=== PATIENT | male | born 1935 | race Two or more races ===

== ENCOUNTER 2016-05-17 16:48 | Inpatient (IN) | payer MEDICAID ==
--- NOTE | 2016-05-17 19:09 | SOAPPROG ---
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 EXAM REVEALS AN OPEN ULCERATION INTO THE INTERPHALANGEAL JOINTS OF THE 2ND TOE WITH SOME PURULENT DRAINAGE. HE ALSO HAS ULCERATIONS ON THE 3RD AND 4TH TOE WELL SWELLING OF HIS AND FOREFOOT. DOPPLER FLOW IS QUITE MINIMAL Plan: PLAN IS ADMIT FOR INTERNAL MEDICINE CONSULTATION / ARTERIAL STUDIES / POSSIBLE CTA / POSSIBLE TOE AMPUTATIONS OR HIGHER LEVEL AMPUTATION / WE WILL EVALUATE FOR POTENTIAL WAYS TO IMPROVE HIS CIRCULATION 05/17/16 19:05 Objective: Vital Signs Temp Pulse Resp BP Pulse Ox 36.9 C 67 16 175/82 H 92 05/17/16 17:52 05/17/16 17:52 05/17/16 17:52 05/17/16 18:06 05/17/16 17:52 ICD10 Worksheet Patient Problems: Problems Problem Status Onset Peripheral vascular disease Acute Acute kidney injury Acute Fever Acute Dehydration Acute VRE (vancomycin-resistant Enterococci) Acute 06/23/15 MRSA (methicillin resistant Staphylococcus aureus) Acute 07/21/15 Cellulitis Acute
[2016-05-17] MEDS ORDERED: ONDANSETRON 4 MG/2 ML VIAL IVP PRN (19:33)
[2016-05-17] MEDS ORDERED: ONDANSETRON DISINTEGRATING 4 MG TAB PO PRN (19:33)
[2016-05-17] MEDS ORDERED: ACETAMINOPHEN 325 MG TAB PO PRN (19:33)
[2016-05-17] MEDS ORDERED: hydrALAZINE 25 MG TAB PO ONE (19:36)
--- NOTE | 2016-05-17 20:55 | GHP ---
[f rep st] HISTORY AND PHYSICAL DATE OF ADMISSION: 05/17/2016 CHIEF COMPLAINT: Foot infection. HISTORY OF PRESENT ILLNESS: This is a 80-year-old male with a history of a left BKA, who saw Dr. Chacha dowell today for a right toe infection. Dr. Fang wanted him directly admitted for IV antibiotics. He notes that he has had a wound on his right toe for some time. He does not believe that he has had any fevers at home. It is somewhat tender to palpation. He is able to bear weight on this leg, but he is mostly wheelchair bound. He does have sensation to light touch in his right lower extremity. He was admitted here about 8 months ago for a left BKA, as well as a left stump infection. He ledbetter s not have any significant known diabetes. He has a history of MRSA, as well as Proteus enterococcu s and coag-negative staph in various cultures. PAST MEDICAL/SURGICAL HISTORY: 1. CVA. 2. Left BKA. 3. Suspected peripheral vascular disease. 4. Chronic kidney disease. 5. Anemia. 6. COPD. 7. BPH. 8. Anemia. 9. Dementia. MEDICATIONS: Please see medication reconciliation. ALLERGIES: No known drug allergies. FAMILY HISTORY: He denies any significant history. SOCIAL HISTORY: He quit tobacco and alcohol when he had a stroke. He lives with his son. He is mo stly wheelchair bound. REVIEW OF SYSTEMS: A 10-point review of systems is conducted and is negative except per HPI. PHYSICAL EXAM: VITAL SIGNS: Blood pressure 175/82, heart rate 87, respiration rate 16, sat 92% on 2 L, temperature 36.9. GENERAL: The patient is a pleasant elderly man who appears in no acute dist ress. EXTREMITIES: A left intact BKA stump, which is well healed. He has a right toe, which has a n open ulcer. There is purulence around it. There is some small amount of surrounding erythema, as well as warmth. I am unable to populate a dorsalis pedis pulse. HEENT: Normocephalic, atraumatic . CARDIOVASCULAR: Regular rate and rhythm. No murmurs, rubs, or gallops. PULMONARY: Mild wheeze s bilaterally. ABDOMEN: Tender to palpation. There is no rebound or guarding. SKIN: No rash. G U: No Ying. NEUROLOGIC: Alert and oriented x3. EXTREMITIES: He is moving all extremities. PSY CHIATRIC: Normal mood and affect. DATA: I discussed this with Dr. Fang. We will admit to med/surg. IMPRESSION AND PLAN: This is a 80-year-old man with likely vascular disease who has a right foot ul cer. 1. Right foot ulcer: Suspect that this is due to vascular disease. Last A1c was 6.3%, I will chec k another, though he has sensation. We will check an x-ray to evaluate for osteo. We will send a w ound culture. I will empirically start antibiotics, as there is some surrounding cellulitis. We wi ll ask Infectious Disease to be involved. We will get arterial studies. Dr. Fang will also be inv olved. He may need a toe amputation versus right-sided BKA. 2. Cerebrovascular accident: We will continue his medications once they are reconciled. 3. History of chronic kidney disease: Check labs right now. Avoid nephrotoxins. 4. Uncontrolled hypertension: I will continue his antihypertensives, including hydralazine and aml odipine. 5. Venous thromboembolism risk: He is high risk. I will give him subcu heparin. 6. Code status: Per him and his son, he would like to be full code. /[id number]/MODL
[2016-05-17] MEDS: HEPARIN 5,000 UNIT/0.5 ML SYR SC SCH (21:18)
[2016-05-17 21:45] LABS: % IMMATURE GRANULYOCYTES 0.4 % (0.0-1.1); ABSOLUTE IMMATURE GRANULOCYTES 0.04 10^3/uL (0.00-0.10); ADD DIFF? NO; ADD MORPH? NO; ADD SCAN? NO; ATYPICAL LYMPHOCYTE FLAG 10 (0-99); FRAGMENT RBC FLAG 20 (0-99); HEMOGLOBIN 8.8 g/dL (13.7-17.5); LEFT SHIFT FLG 0 (0-99); LIPEMIA HEMOLYSIS FLAG 70 (0-99); MEAN CELL HEMOGLOBIN 23.5 pg (27.9-34.1); MEAN CELL HEMOGLOBIN CONCENTR. 29.3 g/dL (32.4-36.7); MEAN PLATELET VOLUME 9.5 fL (8.7-11.7); PLATELET CLUMPS FLAG 0 (0-99); PLATELET COUNT 282 10^3/uL (150-400); RED BLOOD CELL COUNT 3.75 10^6/uL (4.40-6.38); RED CELL DISTRIBUTION WIDTH 18.5 % (11.5-15.2)
[2016-05-17] MEDS: PIPERACILLIN/TAZO 2.25 GM/DEX 50 ML IV SCH (21:51)
[2016-05-17 21:56] LABS: INR 1.09 (0.83-1.16)
[2016-05-17] MEDS ORDERED: oxyCODONE IR 5 MG TAB PO PRN ×2 (21:56)
[2016-05-17 21:58] LABS: ALANINE AMINOTRANSFERASE 26 IU/L (21-72); ALBUMIN 3.9 g/dL (3.5-5.0); ALKALINE PHOSPHATASE 74 IU/L (38-126); ANION GAP 13 mEq/L (8-16); ASPARTATE AMINOTRANSFERASE 13 IU/L (17-59); BILIRUBIN,TOTAL 0.4 mg/dL (0.1-1.4); CARBON DIOXIDE 27 mEq/l (22-31); CHLORIDE 99 mEq/L (97-110); CREATININE 2.1 mg/dL (0.7-1.3); GLOMERULAR FILTRATION RATE 31; GLUCOSE 122 mg/dL (70-100); MAGNESIUM 1.8 mg/dL (1.6-2.3); POTASSIUM 4.7 mEq/L (3.5-5.2); SODIUM 139 mEq/L (134-144); TOTAL PROTEIN 7.3 g/dL (6.3-8.2)
[2016-05-17] MEDS: oxyCODONE IR 5 MG TAB PO PRN (22:02)
[2016-05-17] MEDS: NYSTATIN POWDER 15 GM BTL TP SCH (22:45)
[2016-05-17] MEDS: VANCOMYCIN HCL/NORMAL SALINE 250 ML IV SCH (23:29)
[2016-05-18] MEDS: SODIUM CL NASAL GEL 14.1 GM TUBE TP SCH ×3 (00:50→23:20)
[2016-05-18 05:11] LABS: % IMMATURE GRANULYOCYTES 0.4 % (0.0-1.1); ABSOLUTE IMMATURE GRANULOCYTES 0.03 10^3/uL (0.00-0.10); ADD DIFF? NO; ADD MORPH? YES; ADD SCAN? NO; ATYPICAL LYMPHOCYTE FLAG 10 (0-99); FRAGMENT RBC FLAG 20 (0-99); HEMATOCRIT 26.6 % (40.0-51.0); HEMOGLOBIN 7.7 g/dL (13.7-17.5); LEFT SHIFT FLG 0 (0-99); LIPEMIA HEMOLYSIS FLAG 70 (0-99); MEAN CELL HEMOGLOBIN 23.2 pg (27.9-34.1); MEAN CELL VOLUME 80.1 fL (81.5-99.8); PLATELET CLUMPS FLAG 0 (0-99); PLATELET COUNT 262 10^3/uL (150-400); RED BLOOD CELL COUNT 3.32 10^6/uL (4.40-6.38); RED CELL DISTRIBUTION WIDTH 18.4 % (11.5-15.2)
[2016-05-18 05:16] LABS: MEAN CELL HEMOGLOBIN CONCENTR. 28.9 g/dL (32.4-36.7)
[2016-05-18 05:31] LABS: ANION GAP 11 mEq/L (8-16); CALCIUM 8.5 mg/dL (8.5-10.4); CARBON DIOXIDE 25 mEq/l (22-31); CHLORIDE 102 mEq/L (97-110); CREATININE 2.2 mg/dL (0.7-1.3); GLOMERULAR FILTRATION RATE 29; GLUCOSE 112 mg/dL (70-100); POTASSIUM 5.1 mEq/L (3.5-5.2); SODIUM 138 mEq/L (134-144)
[2016-05-18] MEDS: PIPERACILLIN/TAZO 2.25 GM/DEX 50 ML IV SCH ×3 (05:58→23:20)
[2016-05-18] MEDS: HEPARIN 5,000 UNIT/0.5 ML SYR SC SCH ×3 (05:58→23:20)
[2016-05-18 05:59] LABS: MICROCYTES 1+
[2016-05-18 06:00] LABS: ELLIPTOCYTES 1+; GIANT PLATELETS PRESENT; HYPOCHROMIA 1+; KERATOCYTES 1+; LARGE PLATELETS PRESENT; PLATELET ESTIMATE ADEQUATE (ADEQ); POLYCHROMASIA 1+; SCHISTOCYTES 1+
[2016-05-18] MEDS: oxyCODONE IR 5 MG TAB PO PRN ×4 (06:02→17:44)
[2016-05-18] MEDS: TAMSULOSIN HCL 0.4 MG CAP PO SCH ×2 (08:09→20:36)
[2016-05-18] MEDS: morphINE SR 15 MG TAB PO SCH ×3 (08:09→20:36)
[2016-05-18] MEDS: FUROSEMIDE 20 MG TAB PO SCH (08:09)
[2016-05-18] MEDS: LACTASE 3,000 UNIT TAB PO SCH ×3 (08:09→18:11)
[2016-05-18] MEDS: POLYETHYLENE GLYCOL 3350 17 GM PKT PO SCH (08:10)
[2016-05-18] MEDS ORDERED: PNEUMOC 13-VAL CONJ-DIP CRM/PF 0.5 ML SYR IM ONE ×2 (08:35→11:30)
[2016-05-18] MEDS: NYSTATIN POWDER 15 GM BTL TP SCH ×3 (11:40→23:20)
--- NOTE | 2016-05-18 15:51 | HOSPPROG ---
Hospitalist Progress Note Assessment/Plan: 80 yo M w/hx of L BKA 2/2 PVD and presenting now with R toe/foot ulceration # right foot ulcer/cellulitis: purulent drainage and in the setting of PVD. Will need arterial studies and possible amputation. Treating for now with vanc/ zosyn. Surgery following, ID consulted. Blood and wound cultures pending. # dementia: with hx of prior stroke and seems to be at baseline # ckd: baseline creatinine of 2.3 approximately, at baseline currently, presumed 2/2 htn/vascular disease. Will monitor while on vancomycin. # chronic anemia: now at baseline, drop overnight likely dilutional, presumed due to anemia of chronic disease # htn: bp currently well controlled on carvedilol and lasix # chronic pain with continuous narcotic use and dependency: continue op medications, pain seems currently reasonably controlled # hyperglycemia: no prior hx of dm, checking A1c # dispo: IP status, will need > 48 hours stay for evaluation/mgmt of above Patient new to my care. Old records reviewed and summarized as above. Subjective: no significant overnight events, patient states he is having pain everywhere, but nothing new--limited by patients cognitive dysfunction Objective: Vital Signs Temp Pulse Resp BP Pulse Ox 36.5 C 78 20 128/90 H 90 L 05/18/16 15:10 05/18/16 15:10 05/18/16 15:10 05/18/16 15:10 05/18/16 15:10 Microbiology 05/18/16 08:23 Gram Stain - Final Foot - Anaerobic Tube/Swab Laboratory Results 05/18/16 04:20 05/18/16 04:20 05/17/16 05/18/16 05/19/16 05:59 05:59 05:59 Intake Total 450 Output Total 300 70 Balance 150 -70 PT 14.0 SEC (12.0-15.0) 05/17/16 21:37 INR 1.09 (0.83-1.16) 05/17/16 21:37 somnolent but arousable anicteric op clear rrr no mrg cta b dec bs throughout soft nt nd no cce, left bka, right foot bandaged warm dry diminished distal pulse right foot oriented x 2, interactive, cognitive dysfunctoin ICD10 Worksheet Patient Problems: Problems Problem Status Onset Peripheral vascular disease Acute Acute kidney injury Acute Fever Acute Dehydration Acute VRE (vancomycin-resistant Enterococci) Acute 06/23/15 MRSA (methicillin resistant Staphylococcus aureus) Acute 07/21/15 Cellulitis Acute
--- NOTE | 2016-05-18 17:12 | PCMIDPN ---
Assessment/Plan: Assessment: Right foot infected ulcer on the dorsum of the 2nd toe. Patient also has a small ulcer on the medial aspect of his 3rd toe. Patient is covered on both vancomycin and Zosyn empirically. The inflammation appears to be improved over the dorsum of the foot. He will undergo vascular studies to try to determine if he has peripheral arterial disease on the right side which can be fixed. In the meantime plan to continue the antibiotics and monitor levels. Plan: 05/18/16 17:22 05/18/16 17:41 Subjective: Patient is resting comfortably in his hospital bed. He has his right foot propped up on pillows. He is status post left-sided BKA. Denies any fevers or chills. Some pain in the right foot. Objective: Vancomycin 1 g IV Q 24 hours # 1 Zosyn # 1 Vital Signs Temp Pulse Resp BP Pulse Ox 36.5 C 78 20 128/90 H 90 L 05/18/16 15:10 05/18/16 15:10 05/18/16 15:10 05/18/16 15:10 05/18/16 15:10 Microbiology 05/18/16 08:23 Gram Stain - Final Foot - Anaerobic Tube/Swab Laboratory Results 05/18/16 04:20 05/18/16 04:20 05/17/16 05/18/16 05/19/16 05:59 05:59 05:59 Intake Total 450 Output Total 300 70 Balance 150 -70 - Physical Exam General Appearance: WD/WN, alert, no apparent distress, non-toxic Respiratory: lungs clear, normal breath sounds, No respiratory distress Cardiac/Chest: regular rate, rhythm, No tachycardia Extremities: other (Status post left BKA), No non-tender (Right foot), No normal inspection (Right foot with toe inflammation 2nd digit. Notable dorsal ulceration.) Skin: normal color, warm/dry, No rash Neuro/Psych: alert, normal mood/affect, oriented x 3 ICD10 Worksheet Patient Problems: Problems Problem Status Onset Acute kidney injury Acute Cellulitis Acute Dehydration Acute Fever Acute MRSA (methicillin resistant Staphylococcus aureus) Acute 07/21/15 Peripheral vascular disease Acute VRE (vancomycin-resistant Enterococci) Acute 06/23/15
--- NOTE | 2016-05-18 17:28 | CPIP ---
[f rep st] INVASIVE CARDIAC PROCEDURE The patient is seen for arterial studies because of gangrenous changes in his toes on the right foot . He is status post a left BK amputation. He demonstrates pulsatile flow to the metatarsal level. However, this is blunted all the way down t he thigh. He has PRETTY greater than 1 at the popliteal level and above, but PRETTY at the ankle 0.37 on the right side. This would suggest significant infrapopliteal disease. He is marginal at this point for healing a foot surgery. He may be able to heal a small toe amputat ion. I would recommend further arterial evaluation to see if inflow can be improved. /[id number]/MODL
[2016-05-18] MEDS: MIRTAZAPINE 15 MG TAB PO SCH (20:36)
[2016-05-18] MEDS: CARVEDILOL 6.25 MG TAB PO SCH (20:36)
[2016-05-19] MEDS: VANCOMYCIN HCL/NORMAL SALINE 250 ML IV SCH ×2 (00:07→23:43)
[2016-05-19 04:59] LABS: % IMMATURE GRANULYOCYTES 0.3 % (0.0-1.1); ABSOLUTE IMMATURE GRANULOCYTES 0.03 10^3/uL (0.00-0.10); ADD DIFF? NO; ADD MORPH? NO; ADD SCAN? NO; ATYPICAL LYMPHOCYTE FLAG 0 (0-99); FRAGMENT RBC FLAG 20 (0-99); HEMATOCRIT 25.9 % (40.0-51.0); HEMOGLOBIN 7.9 g/dL (13.7-17.5); LEFT SHIFT FLG 0 (0-99); LIPEMIA HEMOLYSIS FLAG 80 (0-99); MEAN CELL HEMOGLOBIN 23.7 pg (27.9-34.1); MEAN CELL HEMOGLOBIN CONCENTR. 30.5 g/dL (32.4-36.7); MEAN CELL VOLUME 77.5 fL (81.5-99.8); MEAN PLATELET VOLUME 10.1 fL (8.7-11.7); PLATELET CLUMPS FLAG 0 (0-99); PLATELET COUNT 256 10^3/uL (150-400); RED BLOOD CELL COUNT 3.34 10^6/uL (4.40-6.38); RED CELL DISTRIBUTION WIDTH 18.3 % (11.5-15.2)
[2016-05-19 05:09] LABS: ANION GAP 6 mEq/L (8-16); CALCIUM 8.5 mg/dL (8.5-10.4); CARBON DIOXIDE 28 mEq/l (22-31); CHLORIDE 101 mEq/L (97-110); GLOMERULAR FILTRATION RATE 32; GLUCOSE 98 mg/dL (70-100); POTASSIUM 4.7 mEq/L (3.5-5.2); SODIUM 135 mEq/L (134-144)
[2016-05-19] MEDS: HEPARIN 5,000 UNIT/0.5 ML SYR SC SCH ×3 (06:06→21:24)
[2016-05-19] MEDS: PIPERACILLIN/TAZO 2.25 GM/DEX 50 ML IV SCH ×3 (06:07→21:25)
[2016-05-19] MEDS: FUROSEMIDE 20 MG TAB PO SCH (08:07)
[2016-05-19] MEDS: CARVEDILOL 6.25 MG TAB PO SCH ×2 (08:08→17:12)
[2016-05-19] MEDS: TAMSULOSIN HCL 0.4 MG CAP PO SCH ×2 (08:08→21:23)
[2016-05-19] MEDS: POLYETHYLENE GLYCOL 3350 17 GM PKT PO SCH (08:09)
[2016-05-19] MEDS: LACTASE 3,000 UNIT TAB PO SCH ×3 (08:09→17:12)
[2016-05-19] MEDS: morphINE SR 15 MG TAB PO SCH ×3 (08:09→21:23)
[2016-05-19] MEDS: NYSTATIN POWDER 15 GM BTL TP SCH ×3 (08:10→22:32)
[2016-05-19] MEDS: SODIUM CL NASAL GEL 14.1 GM TUBE TP SCH ×2 (08:11→22:33)
--- NOTE | 2016-05-19 10:24 | PCMIDPN ---
Assessment/Plan: 1. Right diabetic foot infection, mainly involving dorsum of 2nd toe: The patient is awaiting further arterial studies before decisions are made regarding surgical intervention. Suspect he will need his 2nd toe amputated. Continue vancomycin and Zosyn, but with this combination need to keep a close eye on his creatinine, which is already abnormal. Check vancomycin trough before tonight dose. Subjective: Patient has no specific complaints other than pain in his right foot. No shaking chills. No diarrhea. No nausea or vomiting. Conversed with the patient in Mongolian. Objective: Vancomycin 1 g IV daily day 3 Zosyn 2.25 g IV q.8 hours day 2. Afebrile Vital Signs Temp Pulse Resp BP Pulse Ox 36.6 C 66 20 161/76 H 97 05/19/16 07:19 05/19/16 08:08 05/19/16 07:19 05/19/16 08:08 05/19/16 07:19 Microbiology 05/18/16 08:23 Gram Stain - Final Foot - Anaerobic Tube/Swab Laboratory Results 05/19/16 04:17 05/19/16 04:17 05/18/16 05/19/16 05/20/16 05:59 05:59 05:59 Intake Total 450 1300 120 Output Total 300 820 470 Balance 150 480 -350 Toe swab with non lactose fermenting gram-negative mack and Staph aureus - Physical Exam General Appearance: alert, no apparent distress EENT: No pharynx normal, No thrush Extremities: other (Right foot 2nd toe with brawny erythema and sausage digit. Ulceration dorsum of right toe that at this point in time looks dry. The whole toe is very tender. His 3rd toe is also tender, with brawny erythema and warm. Patient has surrounding cellulitis on the dorsum of the foot that extends up to the mid ankle area. This is improving.) ICD10 Worksheet Patient Problems: Problems Problem Status Onset Acute kidney injury Acute Cellulitis Acute Dehydration Acute Fever Acute MRSA (methicillin resistant Staphylococcus aureus) Acute 07/21/15 Peripheral vascular disease Acute VRE (vancomycin-resistant Enterococci) Acute 06/23/15
--- NOTE | 2016-05-19 11:31 | CPEKG ---
Heart Rate: 60 RR Interval: 1000 P-R Interval: 176 QRSD Interval: 90 QT Interval: 408 QTC Interval: 408 P [place]: 72 QRS [place]: 63 T Wave [place]: 73 EKG Severity - NORMAL ECG - EKG Impression: SINUS RHYTHM Electronically Signed By: Samuel Ledesma 20-May-2016 12:55:02
[2016-05-19] MEDS: oxyCODONE IR 5 MG TAB PO PRN ×2 (12:03→17:25)
--- NOTE | 2016-05-19 12:58 | HOSPPROG ---
Hospitalist Progress Note Assessment/Plan: 80-year-old male admitted for a right toe infection. Patient is new to me today. He has a known history of peripheral vascular disease and is currently undergoing arterial studies to evaluate blood flow to the right lower extremity. 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 He has lived at [place] x1 year. -right foot ulcers/cellulitis: He had some purulent drainage on admission. Arterial studies are pending. Is currently on vancomycin and Zosyn and the levels of vancomycin will need to be watched given his chronic kidney disease. Id is following. -dementia: This is secondary to prior strokes and he seems to be at his baseline behavior. -CKD: Baseline creatinine is approximately 2.3 and he is currently at his baseline. We will monitor his vancomycin trough levels. -chronic anemia: Currently at baseline. -hypertension: BP is well controlled on carvedilol and Lasix. -chronic pain: He is narcotic dependent and we continued his outpatient medications and his pain seems to be well controlled. -hyperglycemia: Etiology is unclear as he has no history of diabetes mellitus. We are checking a hemoglobin A1c Disposition: Patient needs to be an inpatient he is undergoing vascular studies with possibility of surgical and intervention for amputation of his 2nd toe if things do not improve. Subjective: He interacts politely and is cooperative he appears to be at his baseline mental function. No complaints of pain current pain medication regime seems to be managing the problem. No headache chest pain nausea vomiting Objective: Vital Signs Temp Pulse Resp BP Pulse Ox 36.5 C 59 L 20 175/74 H 96 05/19/16 11:13 05/19/16 11:13 05/19/16 07:19 05/19/16 11:13 05/19/16 11:13 Microbiology 05/18/16 08:23 Gram Stain - Final Foot - Anaerobic Tube/Swab Laboratory Results 05/19/16 04:17 05/19/16 04:17 05/18/16 05/19/16 05/20/16 05:59 05:59 05:59 Intake Total 450 1300 120 Output Total 300 820 470 Balance 150 480 -350 PT 14.0 SEC (12.0-15.0) 05/17/16 21:37 INR 1.09 (0.83-1.16) 05/17/16 21:37 - Time Spent With Patient Time Spent with Patient: greater than 35 minutes Time Spent with Patient: Greater than 35 minutes spent on this patients care, greater than 50% of time spent counseling, educating, and coordinating care regarding the above mentioned plan. - Pending Discharge Pending Discharge Within 24 Hours: No Pending Discharge Within 48 Hours: No - Physical Exam Constitutional: chronically ill appearing Eyes: PERRL Ears, Nose, Mouth, Throat: moist mucous membranes Cardiovascular: regular rate and rhythym, no murmur, rub, or gallop Respiratory: no respiratory distress, no rales or rhonchi Gastrointestinal: normoactive bowel sounds, soft, non-tender abdomen, no palpable masses Musculoskeletal: other (Right lower extremity shows edema and some drainage of the 2nd toe with decreased capillary refill. No ascending cellulitis. There is edema of the ER L Ten.) ICD10 Worksheet Patient Problems: Problems Problem Status Onset Peripheral vascular disease Acute Acute kidney injury Acute Fever Acute Dehydration Acute VRE (vancomycin-resistant Enterococci) Acute 06/23/15 MRSA (methicillin resistant Staphylococcus aureus) Acute 07/21/15 Cellulitis Acute
--- NOTE | 2016-05-19 20:26 | SOAPPROG ---
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 EXAM REVEALS AN OPEN ULCERATION INTO THE INTERPHALANGEAL JOINTS OF THE 2ND TOE WITH SOME PURULENT DRAINAGE. HE ALSO HAS ULCERATIONS ON THE 3RD AND 4TH TOE WELL SWELLING OF HIS AND FOREFOOT. DOPPLER FLOW IS QUITE MINIMAL Plan: PLAN IS ADMIT FOR INTERNAL MEDICINE CONSULTATION / ARTERIAL STUDIES / POSSIBLE CTA / POSSIBLE TOE AMPUTATIONS OR HIGHER LEVEL AMPUTATION / WE WILL EVALUATE FOR POTENTIAL WAYS TO IMPROVE HIS CIRCULATION 05/17/16 19:05 05/19/16 20:24 VS STABLE/ RISKS AND OPTIONS FULLY DISCUSSED/ ART STUDIES SHOW MARGINAL BLOOD FLOW FOR HEALING BUT ANGIO LIMITED BY ELEVATED CREATININE WILL PROCEED IN AM WITH RT 2CD TOE AMP Objective: Vital Signs Temp Pulse Resp BP Pulse Ox 37.0 C 66 18 156/68 H 93 05/19/16 15:19 05/19/16 15:19 05/19/16 15:19 05/19/16 15:19 05/19/16 15:19 Microbiology 05/18/16 08:23 Gram Stain - Final Foot - Anaerobic Tube/Swab Laboratory Results 05/19/16 04:17 05/19/16 04:17 05/18/16 05/19/16 05/20/16 05:59 05:59 05:59 Intake Total 450 1300 120 Output Total 300 820 470 Balance 150 480 -350 PT 14.0 SEC (12.0-15.0) 05/17/16 21:37 INR 1.09 (0.83-1.16) 05/17/16 21:37 ICD10 Worksheet Patient Problems: Problems Problem Status Onset Acute kidney injury Acute Cellulitis Acute Dehydration Acute Fever Acute MRSA (methicillin resistant Staphylococcus aureus) Acute 07/21/15 Peripheral vascular disease Acute VRE (vancomycin-resistant Enterococci) Acute 06/23/15
[2016-05-19] MEDS: MIRTAZAPINE 15 MG TAB PO SCH (21:23)
[2016-05-20] MEDS: oxyCODONE IR 5 MG TAB PO PRN ×3 (00:14→23:15)
[2016-05-20] MEDS: HEPARIN 5,000 UNIT/0.5 ML SYR SC SCH ×3 (04:45→23:43)
[2016-05-20 05:22] LABS: ANION GAP 8 mEq/L (8-16); CALCIUM 8.6 mg/dL (8.5-10.4); CARBON DIOXIDE 29 mEq/l (22-31); CHLORIDE 98 mEq/L (97-110); CREATININE 2.1 mg/dL (0.7-1.3); GLOMERULAR FILTRATION RATE 31; GLUCOSE 95 mg/dL (70-100); POTASSIUM 4.6 mEq/L (3.5-5.2); SODIUM 135 mEq/L (134-144)
[2016-05-20] MEDS: PIPERACILLIN/TAZO 2.25 GM/DEX 50 ML IV SCH (06:00)
[2016-05-20] MEDS: CARVEDILOL 6.25 MG TAB PO SCH ×2 (08:13→16:55)
[2016-05-20] MEDS: morphINE SR 15 MG TAB PO SCH ×3 (08:14→20:24)
[2016-05-20] MEDS ORDERED: BUPIVACAINE 0.5% 30 ML SDV ONE (10:23)
--- NOTE | 2016-05-20 10:38 | PCMIDPN ---
Assessment/Plan: 1. Right diabetic foot infection, mainly involving dorsum of 2nd toe: The patient is presently down in the operating room for amputation of right 2nd toe. Pathology will determine duration of antibiotics. Given culture results of MRSA and Proteus, will discontinue Zosyn and start ertapenem, continuing the vancomycin. Vancomycin level is okay, but will need to be followed given the patient's baseline kidney dysfunction. 05/20/16 10:36 Subjective: Patient is down in the operating room for amputation of right 2nd toe. Objective: Vancomycin 1 g IV daily day 4 Zosyn 2.25 g IV q.8 hours day 3 Afebrile Vital Signs Temp Pulse Resp BP Pulse Ox 36.5 C 66 12 144/64 H 92 05/20/16 08:00 05/20/16 08:00 05/20/16 08:00 05/20/16 08:00 05/20/16 08:00 Microbiology 05/18/16 08:23 Gram Stain - Final Foot - Anaerobic Tube/Swab Laboratory Results 05/19/16 04:17 05/20/16 04:30 05/19/16 05/20/16 05/21/16 05:59 05:59 05:59 Intake Total 1300 120 Output Total 820 470 Balance 480 -350 Blood cultures from May 17 remain sterile Toe swab with MRSA and Proteus mirabilis, sensitive to ertapenem, resistant to the quinolones ICD10 Worksheet Patient Problems: Problems Problem Status Onset Acute kidney injury Acute Cellulitis Acute Dehydration Acute Fever Acute MRSA (methicillin resistant Staphylococcus aureus) Acute 07/21/15 Peripheral vascular disease Acute VRE (vancomycin-resistant Enterococci) Acute 06/23/15
[2016-05-20] MEDS ORDERED: BUPIVACAINE 0.25% 30 ML SDV ONE (10:41)
[2016-05-20] MEDS ORDERED: LIDOCAINE 2% 5 ML SDV ONE (10:46)
[2016-05-20] MEDS ORDERED: PROPOFOL 200 MG/20 ML VIAL ONE (10:47)
[2016-05-20] MEDS ORDERED: fentaNYL 100 MCG/2 ML INJ ONE (10:47)
[2016-05-20] MEDS ORDERED: ALBUTEROL 3 ML DEYVIAL IH ONE (11:00)
--- NOTE | 2016-05-20 11:34 | POSTOPPROG ---
Post Op Note Date of Operation: 05/20/16 Surgeon: Javier Fang Gunner'S Mate M: Adrian David MS, SOM Pacheco MS Anesthesiologist: Berta Martinez MD Anesthesia: GET(General Endotracheal) Pre-op Diagnosis: 2nd toe of right foot gangrene Post-op Diagnosis: same Procedure: Right 2nd toe proximal phalangeal amputation Findings: gangrenous 2nd toe with minimal blood Inf/Abcess present in the surg proc area at time of surgery?: Yes Depth: Deep Incisional (Fascial) EBL: Minimal Complications: none Drains: Other (none) Specimen(s): 2nd toe sent to pathology
--- NOTE | 2016-05-20 11:52 | SOAPPROG ---
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 EXAM REVEALS AN OPEN ULCERATION INTO THE INTERPHALANGEAL JOINTS OF THE 2ND TOE WITH SOME PURULENT DRAINAGE. HE ALSO HAS ULCERATIONS ON THE 3RD AND 4TH TOE WELL SWELLING OF HIS AND FOREFOOT. DOPPLER FLOW IS QUITE MINIMAL Plan: PLAN IS ADMIT FOR INTERNAL MEDICINE CONSULTATION / ARTERIAL STUDIES / POSSIBLE CTA / POSSIBLE TOE AMPUTATIONS OR HIGHER LEVEL AMPUTATION / WE WILL EVALUATE FOR POTENTIAL WAYS TO IMPROVE HIS CIRCULATION 05/17/16 19:05 05/19/16 20:24 VS STABLE/ RISKS AND OPTIONS FULLY DISCUSSED/ ART STUDIES SHOW MARGINAL BLOOD FLOW FOR HEALING BUT ANGIO LIMITED BY ELEVATED CREATININE WILL PROCEED IN AM WITH RT 2CD TOE AMP 05/20/16 11:52 VS STABLE/ RISKS AND OPTIONS FULLY DISCUSSED/ 2ND TOE AMPUTATION TODAY Objective: Vital Signs Temp Pulse Resp BP Pulse Ox 36.5 C 66 12 144/64 H 92 05/20/16 08:00 05/20/16 08:00 05/20/16 08:00 05/20/16 08:00 05/20/16 08:00 Microbiology 05/18/16 08:23 Gram Stain - Final Foot - Anaerobic Tube/Swab Wound Culture - Final MRSA Proteus Mirabilis Laboratory Results 05/19/16 04:17 05/20/16 04:30 05/19/16 05/20/16 05/21/16 05:59 05:59 05:59 Intake Total 1300 120 Output Total 820 470 Balance 480 -350 PT 14.0 SEC (12.0-15.0) 05/17/16 21:37 INR 1.09 (0.83-1.16) 05/17/16 21:37 ICD10 Worksheet Patient Problems: Problems Problem Status Onset Acute kidney injury Acute Cellulitis Acute Dehydration Acute Fever Acute MRSA (methicillin resistant Staphylococcus aureus) Acute 07/21/15 Peripheral vascular disease Acute VRE (vancomycin-resistant Enterococci) Acute 06/23/15
[2016-05-20] MEDS: NYSTATIN POWDER 15 GM BTL TP SCH ×3 (11:53→23:44)
--- NOTE | 2016-05-20 12:32 | GOP ---
[f rep st] OPERATIVE REPORT DATE OF OPERATION: 05/20/2016 SURGEON: Javier Fang MD ANESTHESIOLOGIST: Berta Martinez MD PREOPERATIVE DIAGNOSIS: Osteomyelitis and gangrene of the right 2nd toe. POSTOPERATIVE DIAGNOSIS: Osteomyelitis and gangrene of the right 2nd toe. PROCEDURE PERFORMED: Right 2nd toe proximal phalangeal amputation. FINDINGS: Patient was found to have viable bone but minimal bleeding at that level. DESCRIPTION OF PROCEDURE: Patient was taken to the operating room where he received ankle block by Dr. Martinez as well as IV sedation. He was prepped and draped in the usual sterile fashion. A fishm outh-type incision was made at the base of the toe and dissection extended down to the proximal phal anx which was then divided with a bone cutter. Further bone was removed with a rongeur and was smoo thed off with a rasp. Specimen was removed and sent for culture and pathology. The wound was close d with interrupted 3-0 nylon sutures and infiltrated with 0.5% Marcaine. The wounds were dressed. He tolerated the procedure well. The remaining toes still appeared to be viable, although they had some minor pressure ulcerations. He was taken to the recovery room in good condition. There were n o complications. /[id number]/MODL
--- NOTE | 2016-05-20 12:34 | CPEKG ---
Heart Rate: 53 RR Interval: 1132 P-R Interval: 180 QRSD Interval: 90 QT Interval: 408 QTC Interval: 383 P [place]: 46 QRS [place]: 37 T Wave [place]: 73 EKG Severity - BORDERLINE ECG - EKG Impression: SINUS RHYTHM EKG Impression: BORDERLINE T ABNORMALITIES, LATERAL LEADS EKG Impression: MINIMAL ST ELEVATION, ANTERIOR LEADS Electronically Signed By: Samuel Ledesma 23-May-2016 13:05:34
[2016-05-20] MEDS: ERTAPENEM 0.5 GM in NS 100 ML IV SCH (13:27)
[2016-05-20] MEDS: LACTASE 3,000 UNIT TAB PO SCH ×3 (13:41→18:36)
[2016-05-20] MEDS: TAMSULOSIN HCL 0.4 MG CAP PO SCH ×2 (13:41→20:24)
[2016-05-20] MEDS: FUROSEMIDE 20 MG TAB PO SCH (13:42)
[2016-05-20] MEDS: SODIUM CL NASAL GEL 14.1 GM TUBE TP SCH ×2 (13:42→23:43)
[2016-05-20] MEDS: POLYETHYLENE GLYCOL 3350 17 GM PKT PO SCH (13:43)
--- NOTE | 2016-05-20 16:44 | HOSPPROG ---
Hospitalist Progress Note Assessment/Plan: 80-year-old male admitted for a right toe infection. He has a known history of peripheral vascular disease and is currently undergoing arterial studies to evaluate blood flow to the right lower extremity. 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 He has lived at [facility] x1 year. Today the patient underwent a right 2nd toe amputation successfully with minimal blood loss. New problem postoperatively was that he had wheezing and shortness of breath and was given emergent bronchodilator treatment. There was evidence of some fluid overload and a dose of Lasix was also ordered. -right foot ulcers/cellulitis: He had some purulent drainage on admission. Arterial studies are pending. Is currently on vancomycin and Zosyn and the levels of vancomycin will need to be watched given his chronic kidney disease. Id is following. -new bronchospasm with evidence of decompensation of systolic CHF, presumed. Patient given bronchodilators and diuretics. - wound culture positive for MR ROWLAND. Patient is in isolation. -dementia: This is secondary to prior strokes and he seems to be at his baseline behavior. -CKD: Baseline creatinine is approximately 2.3 and he is currently at his baseline. We will monitor his vancomycin trough levels. Today's creatinine was 2.1. -chronic anemia: Currently at baseline. -hypertension: BP is well controlled on carvedilol and Lasix. -chronic pain: He is narcotic dependent and we continued his outpatient medications and his pain seems to be well controlled. -hyperglycemia: Etiology is unclear as he has no history of diabetes mellitus. We are checking a hemoglobin A1c Disposition: Unclear date of final disposition. Arterial evaluation indicates minimal blood flow to the distal right foot. Per surgery note it is unclear if he will tolerate and he will the 2nd toe amputation although was aimed at tempt to save the foot. We will follow with surgery and their suggestions as to his immediate a disposition. Subjective: Patient says he feels slightly short of breath without chest pain. No nausea vomiting diaphoresis. The information was obtained through an credit office manager. He reports the pain in his right foot is well controlled. Objective: Vital Signs Temp Pulse Resp BP Pulse Ox 36.9 C 63 20 125/77 H 85 L 05/20/16 15:04 05/20/16 15:04 05/20/16 15:04 05/20/16 15:04 05/20/16 15:04 Microbiology 05/18/16 08:23 Gram Stain - Final Foot - Anaerobic Tube/Swab Wound Culture - Final MRSA Proteus Mirabilis Laboratory Results 05/19/16 04:17 05/20/16 04:30 05/19/16 05/20/16 05/21/16 05:59 05:59 05:59 Intake Total 1300 120 125 Output Total 820 470 0 Balance 480 -350 125 PT 14.0 SEC (12.0-15.0) 05/17/16 21:37 INR 1.09 (0.83-1.16) 05/17/16 21:37 - Time Spent With Patient Time Spent with Patient: greater than 35 minutes Time Spent with Patient: Greater than 35 minutes spent on this patients care, greater than 50% of time spent counseling, educating, and coordinating care regarding the above mentioned plan. - Pending Discharge Pending Discharge Within 24 Hours: No Pending Discharge Within 48 Hours: No - Physical Exam Constitutional: other (Mild respiratory distress) Eyes: PERRL, anicteric sclera Ears, Nose, Mouth, Throat: moist mucous membranes, hearing normal Cardiovascular: regular rate and rhythym, no murmur, rub, or gallop, JVD, tachycardia Respiratory: expiratory wheeze, inspiratory crackles, bronchial breath sounds Gastrointestinal: normoactive bowel sounds, soft, non-tender abdomen Genitourinary: no bladder fullness Skin: warm Musculoskeletal: other (Right foot shows a surgical dressing there is a right 2nd toe amputation. Skin is tight and no pulse could be felt) Neurologic: AAOx3, CN II-XII Intact Psychiatric: interacting appropriately ICD10 Worksheet Patient Problems: Problems Problem Status Onset Peripheral vascular disease Acute Acute kidney injury Acute Fever Acute Dehydration Acute VRE (vancomycin-resistant Enterococci) Acute 06/23/15 MRSA (methicillin resistant Staphylococcus aureus) Acute 07/21/15 Cellulitis Acute
[2016-05-20] MEDS ORDERED: FUROSEMIDE 40 MG/4 ML VIAL IVP ONE (16:45)
[2016-05-20] MEDS ORDERED: IPRATROPIUM/ALBUTEROL 3 ML DEYVIAL ONE (18:15)
[2016-05-20] MEDS: IPRATROPIUM/ALBUTEROL 3 ML DEYVIAL IH SCH (18:23)
[2016-05-20] MEDS ORDERED: BISACODYL 10 MG SUPP PR PRN (19:46)
[2016-05-20] MEDS ORDERED: LACTULOSE 20 GM/30 ML UDCUP PO PRN (19:46)
[2016-05-20] MEDS ORDERED: MAGNESIUM HYDROXIDE 30 ML UDCUP PO PRN (19:46)
[2016-05-20] MEDS ORDERED: POLYETHYLENE GLYCOL 3350 17 GM PKT PO PRN (19:46)
[2016-05-20] MEDS: MIRTAZAPINE 15 MG TAB PO SCH (20:24)
[2016-05-20] MEDS: SENNOSIDES/DOCUSATE SODIUM TAB PO SCH (20:24)
[2016-05-20] MEDS: VANCOMYCIN HCL/NORMAL SALINE 250 ML IV SCH (23:43)
[2016-05-21] MEDS: IPRATROPIUM/ALBUTEROL 3 ML DEYVIAL IH SCH ×4 (05:13→20:43)
[2016-05-21 05:37] LABS: % IMMATURE GRANULYOCYTES 0.2 % (0.0-1.1); ABSOLUTE IMMATURE GRANULOCYTES 0.02 10^3/uL (0.00-0.10); ADD DIFF? NO; ADD MORPH? NO; ADD SCAN? NO; ATYPICAL LYMPHOCYTE FLAG 10 (0-99); FRAGMENT RBC FLAG 20 (0-99); HEMATOCRIT 28.8 % (40.0-51.0); HEMOGLOBIN 8.4 g/dL (13.7-17.5); LEFT SHIFT FLG 0 (0-99); LIPEMIA HEMOLYSIS FLAG 70 (0-99); MEAN CELL HEMOGLOBIN 23.1 pg (27.9-34.1); MEAN CELL HEMOGLOBIN CONCENTR. 29.2 g/dL (32.4-36.7); MEAN CELL VOLUME 79.1 fL (81.5-99.8); MEAN PLATELET VOLUME 10.2 fL (8.7-11.7); PLATELET CLUMPS FLAG 0 (0-99); PLATELET COUNT 283 10^3/uL (150-400); RED BLOOD CELL COUNT 3.64 10^6/uL (4.40-6.38)
[2016-05-21] MEDS: HEPARIN 5,000 UNIT/0.5 ML SYR SC SCH ×3 (05:48→23:24)
[2016-05-21 05:52] LABS: ANION GAP 12 mEq/L (8-16); CALCIUM 9.1 mg/dL (8.5-10.4); CARBON DIOXIDE 29 mEq/l (22-31); CHLORIDE 99 mEq/L (97-110); CREATININE 2.2 mg/dL (0.7-1.3); GLOMERULAR FILTRATION RATE 29; GLUCOSE 96 mg/dL (70-100); POTASSIUM 4.9 mEq/L (3.5-5.2); SODIUM 140 mEq/L (134-144)
[2016-05-21] MEDS: CARVEDILOL 6.25 MG TAB PO SCH ×2 (08:26→16:53)
[2016-05-21] MEDS: SENNOSIDES/DOCUSATE SODIUM TAB PO SCH ×2 (08:27→20:25)
[2016-05-21] MEDS: POLYETHYLENE GLYCOL 3350 17 GM PKT PO SCH (08:27)
[2016-05-21] MEDS: TAMSULOSIN HCL 0.4 MG CAP PO SCH ×2 (08:27→20:25)
[2016-05-21] MEDS: FUROSEMIDE 20 MG TAB PO SCH (08:27)
[2016-05-21] MEDS: morphINE SR 15 MG TAB PO SCH ×3 (08:27→20:24)
[2016-05-21] MEDS: SODIUM CL NASAL GEL 14.1 GM TUBE TP SCH ×2 (08:28→20:23)
[2016-05-21] MEDS: NYSTATIN POWDER 15 GM BTL TP SCH ×3 (08:28→23:28)
[2016-05-21] MEDS: LACTASE 3,000 UNIT TAB PO SCH ×3 (08:31→17:15)
--- NOTE | 2016-05-21 10:57 | SOAPPROG ---
SOAP Progress Note Assessment/Plan: Assessment: s/p amputation 2nd toe Some throbbing pain walking boot to off load PT S: Pain in left side and throbbing pain r foot O: INcision cdi Plan: 05/21/16 10:57 Objective: Vital Signs Temp Pulse Resp BP Pulse Ox 36.7 C 72 18 150/67 H 99 05/21/16 07:55 05/21/16 07:55 05/21/16 07:55 05/21/16 07:55 05/21/16 07:55 Microbiology 05/20/16 11:28 Gram Stain - Final Toe - Tissue 05/18/16 08:23 Gram Stain - Final Foot - Anaerobic Tube/Swab Wound Culture - Final MRSA Proteus Mirabilis Laboratory Results 05/21/16 05:00 05/21/16 05:00 05/20/16 05/21/16 05/22/16 05:59 05:59 05:59 Intake Total 120 375 Output Total 470 620 Balance -350 -245 PT 14.0 SEC (12.0-15.0) 05/17/16 21:37 INR 1.09 (0.83-1.16) 05/17/16 21:37 ICD10 Worksheet Patient Problems: Problems Problem Status Onset Acute kidney injury Acute Cellulitis Acute Dehydration Acute Fever Acute MRSA (methicillin resistant Staphylococcus aureus) Acute 07/21/15 Peripheral vascular disease Acute VRE (vancomycin-resistant Enterococci) Acute 06/23/15
[2016-05-21] MEDS: ERTAPENEM 0.5 GM in NS 100 ML IV SCH (12:48)
[2016-05-21] MEDS ORDERED: ALTEPLASE 2 MG VIAL IVP PRN (12:58)
--- NOTE | 2016-05-21 16:04 | HOSPPROG ---
Hospitalist Progress Note Assessment/Plan: 80-year-old male admitted for a right toe infection. He has a known history of peripheral vascular disease and is currently undergoing arterial studies to evaluate blood flow to the right lower extremity. 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 He has lived at [facility] x1 year. -postop day 2. Of right foot 2nd toe amputation and currently doing well and followed by surgery. He is continue on IV vancomycin a PICC line will be placed -right foot ulcers/cellulitis: He had some purulent drainage on admission. Arterial studies are pending. Is currently on vancomycin and Zosyn and the levels of vancomycin will need to be watched given his chronic kidney disease. Id is following. -bronchospasm noted yesterday postoperatively: Patient was given an additional dose of Lasix in the fluid balance has been negative. Today is in no respiratory distress there in there is no wheezing. - wound culture positive for MR ROWLAND. Patient is in isolation. -dementia: This is secondary to prior strokes and he seems to be at his baseline behavior. -CKD: Baseline creatinine is approximately 2.3 and he is currently at his baseline. We will monitor his vancomycin trough levels. Today's creatinine was 2.1. -chronic anemia: Currently at baseline. -hypertension: BP is well controlled on carvedilol and Lasix. -chronic pain: He is narcotic dependent and we continued his outpatient medications and his pain seems to be well controlled. -hyperglycemia: Etiology is unclear as he has no history of diabetes mellitus. We are checking a hemoglobin A1c Disposition: Unclear date of final disposition. Arterial evaluation indicates minimal blood flow to the distal right foot. Per surgery note it is unclear if he will tolerate and he will the 2nd toe amputation although was aimed at tempt to save the foot. We will follow with surgery and their suggestions as to his immediate a disposition. Subjective: No complaints denies shortness of breath or chest pain. He is eating well. Objective: Vital Signs Temp Pulse Resp BP Pulse Ox 37.2 C 68 16 103/66 97 05/21/16 15:24 05/21/16 15:24 05/21/16 15:24 05/21/16 15:24 05/21/16 15:24 Microbiology 05/20/16 11:28 Gram Stain - Final Toe - Tissue 05/18/16 08:23 Gram Stain - Final Foot - Anaerobic Tube/Swab Wound Culture - Final MRSA Proteus Mirabilis Laboratory Results 05/21/16 05:00 05/21/16 05:00 05/20/16 05/21/16 05/22/16 05:59 05:59 05:59 Intake Total 120 375 Output Total 470 620 325 Balance -350 -245 -325 PT 14.0 SEC (12.0-15.0) 05/17/16 21:37 INR 1.09 (0.83-1.16) 05/17/16 21:37 - Time Spent With Patient Time Spent with Patient: greater than 35 minutes Time Spent with Patient: Greater than 35 minutes spent on this patients care, greater than 50% of time spent counseling, educating, and coordinating care regarding the above mentioned plan. - Pending Discharge Pending Discharge Within 24 Hours: No Pending Discharge Within 48 Hours: No - Physical Exam Constitutional: no apparent distress Eyes: PERRL Ears, Nose, Mouth, Throat: moist mucous membranes Cardiovascular: regular rate and rhythym, no murmur, rub, or gallop Respiratory: no respiratory distress, no rales or rhonchi, clear to auscultation , reduced air movement Gastrointestinal: normoactive bowel sounds, soft, non-tender abdomen Musculoskeletal: other (Right foot 2nd toe shows amputation and appears to be healing well he has daily dressing changes. No ascending cellulitis.) ICD10 Worksheet Patient Problems: Problems Problem Status Onset Peripheral vascular disease Acute Acute kidney injury Acute Fever Acute Dehydration Acute VRE (vancomycin-resistant Enterococci) Acute 06/23/15 MRSA (methicillin resistant Staphylococcus aureus) Acute 07/21/15 Cellulitis Acute
[2016-05-21] MEDS: MIRTAZAPINE 15 MG TAB PO SCH (20:25)
[2016-05-21] MEDS: VANCOMYCIN HCL/NORMAL SALINE 250 ML IV SCH (23:25)
[2016-05-21] MEDS: oxyCODONE IR 5 MG TAB PO PRN (23:29)
[2016-05-22 04:02] LABS: % IMMATURE GRANULYOCYTES 0.4 % (0.0-1.1); ABSOLUTE IMMATURE GRANULOCYTES 0.04 10^3/uL (0.00-0.10); ADD DIFF? NO; ADD MORPH? YES; ADD SCAN? NO; ATYPICAL LYMPHOCYTE FLAG 0 (0-99); FRAGMENT RBC FLAG 20 (0-99); LEFT SHIFT FLG 0 (0-99); LIPEMIA HEMOLYSIS FLAG 70 (0-99); MEAN CELL HEMOGLOBIN CONCENTR. 29.1 g/dL (32.4-36.7); MEAN CELL VOLUME 79.3 fL (81.5-99.8); MEAN PLATELET VOLUME 10.3 fL (8.7-11.7); PLATELET CLUMPS FLAG 0 (0-99); PLATELET COUNT 214 10^3/uL (150-400); RED BLOOD CELL COUNT 2.17 10^6/uL (4.40-6.38); RED CELL DISTRIBUTION WIDTH 18.4 % (11.5-15.2)
[2016-05-22 04:07] LABS: ANION GAP 7 mEq/L (8-16); CARBON DIOXIDE 30 mEq/l (22-31); CHLORIDE 105 mEq/L (97-110); CREATININE 2.2 mg/dL (0.7-1.3); GLOMERULAR FILTRATION RATE 29; GLUCOSE 119 mg/dL (70-100); POTASSIUM 5.4 mEq/L (3.5-5.2); SODIUM 142 mEq/L (134-144)
[2016-05-22 04:10] LABS: INR 1.27 (0.83-1.16); PROTIME(PATIENT) 15.9 SEC (12.0-15.0)
[2016-05-22 04:11] LABS: APTT 37.5 SEC (23.0-38.0)
[2016-05-22 04:15] LABS: HEMATOCRIT 17.2 % (40.0-51.0)
[2016-05-22 04:55] LABS: HYPOCHROMIA 1+; KERATOCYTES 1+; MICROCYTES 1+; PLATELET ESTIMATE ADEQUATE (ADEQ); POLYCHROMASIA 1+
[2016-05-22] MEDS: PANTOPRAZOLE SODIUM 80 MG in NS 100 ML IV SCH ×2 (05:11→16:30)
[2016-05-22] MEDS: HEPARIN 5,000 UNIT/0.5 ML SYR SC SCH (05:12)
[2016-05-22] MEDS: IPRATROPIUM/ALBUTEROL 3 ML DEYVIAL IH SCH ×4 (05:31→22:04)
--- NOTE | 2016-05-22 08:03 | HOSPPROG ---
Hospitalist Progress Note Assessment/Plan: 80-year-old male admitted for a right toe infection. He has a known history of peripheral vascular disease and is currently undergoing arterial studies to evaluate blood flow to the right lower extremity. 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 He has lived at [place] x1 year. -postop day 2. Of right foot 2nd toe amputation and currently doing well and followed by surgery. He is continue on IV vancomycin a PICC line will be placed -right foot ulcers/cellulitis: He had some purulent drainage on admission. Arterial studies are pending. Is currently on vancomycin and Zosyn and the levels of vancomycin will need to be watched given his chronic kidney disease. Id is following. -new problem today GI bleeding: Patient's hemoglobin fell to 5 with melena and black stool. 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 He is currently on Protonix IV and Q 6 hour hemoglobin checks. If hemoglobin falls less than 7 will transfuse again and perhaps a repeat EGD for bleeding along with a colonoscopy. -bronchospasm noted yesterday postoperatively: Following yesterday's dose of Lasix of bronchospasm resolved. Today he has no bronchospasm. I have not given him any Lasix today in light of the GI bleeding but will follow his respiratory status closely. He has a tenuous fluid balance due to his chronic kidney disease. - wound culture positive for MR ROWLAND. Patient is in isolation. -dementia: This is secondary to prior strokes and he seems to be at his baseline behavior. -CKD: Baseline creatinine is approximately 2.3 and he is currently at his baseline. We will monitor his vancomycin trough levels. Today's creatinine was 2.1. -chronic anemia: Currently at baseline. -hypertension: BP is well controlled on carvedilol and Lasix. -chronic pain: He is narcotic dependent and we continued his outpatient medications and his pain seems to be well controlled. -hyperglycemia: Etiology is unclear as he has no history of diabetes mellitus. We are checking a hemoglobin A1c Disposition: Unclear date of final disposition. Arterial evaluation indicates minimal blood flow to the distal right foot. Per surgery note it is unclear if he will tolerate and he will the 2nd toe amputation although was aimed at tempt to save the foot. We will follow with surgery and their suggestions as to his immediate a disposition. Regarding his GI bleeding will follow H and H and transfuse as needed. Findings have been discussed with GI and ID. Time: 40 minutes Subjective: No complaints of chest pain shortness of breath. significant melena is noted. Objective: Vital Signs Temp Pulse Resp BP Pulse Ox 36.6 C 81 16 114/54 L 96 05/22/16 03:43 05/22/16 05:33 05/22/16 05:33 05/22/16 03:43 05/22/16 05:33 Microbiology 05/20/16 11:28 Gram Stain - Final Toe - Tissue Laboratory Results 05/22/16 03:30 05/22/16 03:30 05/21/16 05/22/16 05/23/16 05:59 05:59 05:59 Intake Total 375 1020 Output Total 620 325 Balance -245 695 PT 15.9 SEC (12.0-15.0) H 05/22/16 03:30 INR 1.27 (0.83-1.16) H 05/22/16 03:30 Laboratory Tests 05/17/16 05/17/16 05/18/16 21:37 21:37 04:20 WBC 9.58 H Hgb 8.8 L Potassium 5.1 BUN 61 H Creatinine 2.1 H 05/19/16 05/20/16 05/22/16 04:17 04:30 03:30 WBC 8.79 Hgb 7.9 L 5.0 L* Potassium BUN 55 H Creatinine 2.1 H 05/22/16 03:30 WBC Hgb Potassium 5.4 H BUN Creatinine - Time Spent With Patient Time Spent with Patient: greater than 35 minutes Time Spent with Patient: Greater than 35 minutes spent on this patients care, greater than 50% of time spent counseling, educating, and coordinating care regarding the above mentioned plan. - Pending Discharge Pending Discharge Within 24 Hours: No Pending Discharge Within 48 Hours: No - Physical Exam Constitutional: no apparent distress, chronically ill appearing Eyes: PERRL, anicteric sclera Ears, Nose, Mouth, Throat: moist mucous membranes Cardiovascular: regular rate and rhythym, no murmur, rub, or gallop Respiratory: no respiratory distress, no rales or rhonchi Gastrointestinal: soft, non-tender abdomen, no palpable masses, other (Melena is noted) Genitourinary: no bladder fullness Musculoskeletal: generalized weakness Neurologic: AAOx3, CN II-XII Intact Psychiatric: interacting appropriately ICD10 Worksheet Patient Problems: Problems Problem Status Onset Peripheral vascular disease Acute Acute kidney injury Acute Fever Acute Dehydration Acute VRE (vancomycin-resistant Enterococci) Acute 06/23/15 MRSA (methicillin resistant Staphylococcus aureus) Acute 07/21/15 Cellulitis Acute
[2016-05-22] MEDS: NYSTATIN POWDER 15 GM BTL TP SCH ×3 (08:26→21:33)
[2016-05-22] MEDS: LACTASE 3,000 UNIT TAB PO SCH ×3 (08:26→17:53)
[2016-05-22] MEDS: FUROSEMIDE 20 MG TAB PO SCH (08:26)
[2016-05-22] MEDS: TAMSULOSIN HCL 0.4 MG CAP PO SCH ×2 (08:26→19:54)
[2016-05-22] MEDS: morphINE SR 15 MG TAB PO SCH ×3 (08:26→19:54)
[2016-05-22] MEDS: POLYETHYLENE GLYCOL 3350 17 GM PKT PO SCH (08:26)
[2016-05-22] MEDS: CARVEDILOL 6.25 MG TAB PO SCH ×2 (08:26→16:53)
[2016-05-22] MEDS: SODIUM CL NASAL GEL 14.1 GM TUBE TP SCH ×2 (08:27→21:32)
[2016-05-22] MEDS: SENNOSIDES/DOCUSATE SODIUM TAB PO SCH ×2 (08:27→19:54)
--- NOTE | 2016-05-22 10:33 | GCON ---
[f rep st] CONSULTATION DATE OF CONSULTATION: 05/22/2016 REFERRING PHYSICIAN: Dr. Rodriguez CHIEF COMPLAINT: Melena. HISTORY OF PRESENT ILLNESS: I am asked to see this patient in consultation by Dr. Rodriguez for a chief complaint of melena. The patient is a 80-year-old, mostly Serbian-speaking male with underlying dementia, difficult to get a history. The history is obtained from the chart, house staff, and via an environmental tech. The patient was admitted on May 17 for a right toe infection. He is status post left BKA, required surgery. He does have underlying MRSA. Was noted to pass melenic stools last night and then had a noted drop in hematocrit. The patient is unaware of any prior history of GI bleeding or peptic ulcer disease. Does states he does not take aspirin or NSAIDs. Has remote history of alcohol but is vague and states that he is not drinking now, but we do not know how long he has been abstinent from alcohol. He states he has never had a colonoscopy or endoscopy. He denies nausea or vomiting, or hematemesis. ALLERGIES: No known drug allergies. MEDICATIONS: Current medications include Tylenol, DuoNeb, alteplase, Bisacodyl , Coreg, ertapenem, Lasix, heparin, lactulose, Milk of Magnesia, Remeron, morphine, pantoprazole, Flomax, and vancomycin. PAST MEDICAL HISTORY: Notable for CVA, left BKA, suspected peripheral vascular disease, chronic kidney disease, chronic anemia, COPD, BPH, and dementia. FAMILY HISTORY: Negative for colon cancer. SOCIAL HISTORY: Remote history of drinking. REVIEW OF SYSTEMS: I have performed a complete review of systems which is negative except for pertinent positives and negatives as noted above in the HPI. PHYSICAL EXAMINATION: GENERAL: The patient is afebrile at 36.4, BP 144/54, pulse 81. CONSTITUTIONAL: Patient is alert, oriented x2. EYES: No scleral icterus. HEENT: No oral lesions. CV: Regular rate and rhythm. CHEST: Clear to auscultation bilaterally. ABDOMEN: Positive bowel sounds. Soft and nontender. No hepatosplenomegaly. NEUROLOGIC: Grossly nonfocal no asterixis. SKIN: Without rashes and no spider angiomata. LABORATORY DATA: Shows an elevated BUN at 74, higher than his baseline with a creatinine of 2.2. Hematocrit was 25.5, this morning it is 17. Pro time is 15.9. ASSESSMENT: Patient with 2 melenic stools since last night with a drop in hematocrit concerning for acute upper gastrointestinal bleed. I think given his elevated BUN, that most likely this is an upper source and could be worsened by recent heparin. He is otherwise hemodynamically stable. Overall I think patient would be higher risk for anesthesia given his age, vascular disease and chronic narcotic use, and we will ask for the assistance of Anesthesia. PLAN: Recommend urgent upper endoscopy today with anesthesia for evaluation of GI bleeding most likely upper. However, we do not see a clear source on exam today. May need to consider a colonoscopy. I will discuss this with his son as patient is unable to provide consent. Thank you for this consult. /[id number]/MODL MTDD
--- NOTE | 2016-05-22 10:33 | SOAPPROG ---
SOAP Progress Note Assessment/Plan: Assessment: s/p amputation 2nd toe Pain controlled walking boot to off load PT GI bleed last evening S: Pain equal as yesterday but did not describe throbbing O: INcision cdi Plan: 05/21/16 10:57 05/22/16 10:32 Objective: Vital Signs Temp Pulse Resp BP Pulse Ox 36.7 C 67 16 130/58 H 100 05/22/16 08:00 05/22/16 08:00 05/22/16 08:00 05/22/16 08:00 05/22/16 08:00 Microbiology 05/20/16 11:28 Gram Stain - Final Toe - Tissue Laboratory Results 05/22/16 03:30 05/22/16 03:30 05/21/16 05/22/16 05/23/16 05:59 05:59 05:59 Intake Total 375 1020 Output Total 620 325 Balance -245 695 PT 15.9 SEC (12.0-15.0) H 05/22/16 03:30 INR 1.27 (0.83-1.16) H 05/22/16 03:30 ICD10 Worksheet Patient Problems: Problems Problem Status Onset Acute kidney injury Acute Cellulitis Acute Dehydration Acute Fever Acute MRSA (methicillin resistant Staphylococcus aureus) Acute 07/21/15 Peripheral vascular disease Acute VRE (vancomycin-resistant Enterococci) Acute 06/23/15
[2016-05-22] MEDS ORDERED: PROPOFOL/EMULSION 500 MG/50 ML BOTTLE IV ONE (11:42)
--- NOTE | 2016-05-22 12:10 | SUROPNOTE ---
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
--- NOTE | 2016-05-22 12:54 | GPN ---
[f rep st] PROCEDURE NOTE DATE OF PROCEDURE: 05/18/2016 PROCEDURE PERFORMED: Upper endoscopy with hemostasis. INSTRUMENT USED: Olympus gastroscope. MEDICINES GIVEN: Monitored anesthesia care per Anesthesiology. INDICATIONS: The patient is a 80-year-old with significant decrease in hematocrit with melena consi stent with upper GI bleed, referred for upper endoscopy. Prior to the procedure, exam was performed, including auscultation of the heart and lungs. The patient was not felt to be competent enough to provide informed consent for himself. Informed c onsent was obtained via phone from his son Emmanuel. The procedure was explained, including the risk of bleeding, perforation, infection and sedation, and the patient's son gave informed consent on beh custodial of his father. PROCEDURE IN DETAIL: The patient was placed in the left lateral decubitus position. Medications we re given by the anesthesiologist. Instruments were inserted via a bite block in the esophagus. At the distal esophagus, there was a g rade A erosive esophagitis noted. The scope was passed in the stomach, which had some remnants of o ld food, but no old blood. No active bleeding. No blood clots. No erosions. No Debbie-Lewis tea r or ulcer seen. The scope was then passed into the duodenum, which had bright red blood noted just passed the bulb. This was rinsed. It was a difficult lesion to see, as it was just beyond the bend of the bulb behi nd a fold. But with rinsing, it was seen to have persistent oozing. There was no active ulceration around this area. As best as it could be determined, it appeared to be consistent with a bleeding AVM. Two clips were placed on the AVM with hemostasis achieved. No other lesions were seen. The scope was removed from the patient, who tolerated the procedure well. Time of procedure was approximately 20 minutes. ASSESSMENT: 1. 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 Hemostasis was achieved with clipping x2. 2. Grade A erosive esophagitis. The patient could be at risk for other AVMs throughout his GI trac t. PLAN: Continue PPI, IV therapy. Will continue to monitor H and H and monitor for rebleeding. If p atient should have evidence of rebleeding, we would recommend repeat upper endoscopy as well as colo noscopy. And if he has continued significant bleeding with no other lesions seen, then may consider IR treatment for AVMs. Hold heparin until his H and H are stable. Will follow with you. Thanks for this consult. /[id number]/MODL
[2016-05-22] MEDS: oxyCODONE IR 5 MG TAB PO PRN ×2 (13:45→21:31)
[2016-05-22] MEDS: ERTAPENEM 0.5 GM in NS 100 ML IV SCH (13:46)
[2016-05-22 13:59] LABS: HEMATOCRIT 24.7 % (40.0-51.0); HEMOGLOBIN 7.8 g/dL (13.7-17.5)
[2016-05-22 18:50] LABS: HEMATOCRIT 23.5 % (40.0-51.0); HEMOGLOBIN 7.5 g/dL (13.7-17.5)
[2016-05-22] MEDS: MIRTAZAPINE 15 MG TAB PO SCH (19:54)
[2016-05-22] MEDS ORDERED: VANCOMYCIN HCL/NORMAL SALINE 250 ML IV SCH (23:30)
[2016-05-23] MEDS: PANTOPRAZOLE SODIUM 80 MG in NS 100 ML IV SCH ×3 (00:45→22:30)
[2016-05-23] MEDS: oxyCODONE IR 5 MG TAB PO PRN (01:18)
[2016-05-23 03:54] LABS: HEMATOCRIT 22.6 % (40.0-51.0); HEMOGLOBIN 7.1 g/dL (13.7-17.5)
[2016-05-23] MEDS: IPRATROPIUM/ALBUTEROL 3 ML DEYVIAL IH SCH ×5 (05:21→21:07)
[2016-05-23 06:07] LABS: HEMATOCRIT 21.8 % (40.0-51.0)
[2016-05-23 06:08] LABS: HEMOGLOBIN 6.9 g/dL (13.7-17.5)
[2016-05-23 06:56] LABS: ANION GAP 6 mEq/L (8-16); CALCIUM 8.5 mg/dL (8.5-10.4); CARBON DIOXIDE 29 mEq/l (22-31); CHLORIDE 107 mEq/L (97-110); CREATININE 1.7 mg/dL (0.7-1.3); GLOMERULAR FILTRATION RATE 39; GLUCOSE 102 mg/dL (70-100); POTASSIUM 4.4 mEq/L (3.5-5.2); SODIUM 142 mEq/L (134-144)
[2016-05-23] MEDS: LACTASE 3,000 UNIT TAB PO SCH ×3 (09:14→17:38)
[2016-05-23] MEDS: TAMSULOSIN HCL 0.4 MG CAP PO SCH ×2 (09:14→22:31)
[2016-05-23] MEDS: FUROSEMIDE 20 MG TAB PO SCH (09:15)
[2016-05-23] MEDS: CARVEDILOL 6.25 MG TAB PO SCH ×2 (09:15→17:38)
[2016-05-23] MEDS: morphINE SR 15 MG TAB PO SCH ×3 (09:15→22:31)
[2016-05-23] MEDS: SENNOSIDES/DOCUSATE SODIUM TAB PO SCH ×2 (09:15→22:31)
[2016-05-23] MEDS: POLYETHYLENE GLYCOL 3350 17 GM PKT PO SCH (09:23)
[2016-05-23] MEDS: NYSTATIN POWDER 15 GM BTL TP SCH ×3 (09:27→22:32)
[2016-05-23] MEDS: SODIUM CL NASAL GEL 14.1 GM TUBE TP SCH ×2 (09:28→22:32)
[2016-05-23 11:07] LABS: HEMATOCRIT 24.2 % (40.0-51.0); HEMOGLOBIN 7.6 g/dL (13.7-17.5)
--- NOTE | 2016-05-23 11:48 | SOAPPROG ---
SOAP Progress Note Assessment/Plan: Assessment: GIB suspect from small bowel AVM treated via clipping yesterday. Still with decline in H+H with some melena but pt states less today. Suspect bleeding has stopped but he is at risk for other AVMs in lower small bowel or colon. Plan: Monitor H+H and monitor for e/o rebleeding Recommend repeat EGD with colon if e/o rebleeding Consider advance diet if H+H stable today. 05/23/16 11:44 Subjective: GIB Pt states he feels better. Noted blood in first stool today but less with second stool. Objective: Vital Signs Temp Pulse Resp BP Pulse Ox 36.9 C 78 12 142/60 H 94 05/23/16 10:00 05/23/16 10:36 05/23/16 10:36 05/23/16 10:00 05/23/16 10:36 Microbiology 05/20/16 11:28 Gram Stain - Final Toe - Tissue 05/17/16 21:45 Blood Culture - Final Blood 05/17/16 21:37 Blood Culture - Final Blood Laboratory Results 05/23/16 10:55 05/23/16 05:45 05/22/16 05/23/16 05/24/16 05:59 05:59 05:59 Intake Total 1020 1817 Output Total 325 825 Balance 695 992 PT 15.9 SEC (12.0-15.0) H 05/22/16 03:30 INR 1.27 (0.83-1.16) H 05/22/16 03:30 Physical Exam - Physical Exam General Appearance: alert, no apparent distress Respiratory: lungs clear Cardiac/Chest: regular rate, rhythm, No diastolic murmur Abdomen: non-tender, soft ICD10 Worksheet Patient Problems: Problems Problem Status Onset Acute kidney injury Acute Cellulitis Acute Dehydration Acute Fever Acute MRSA (methicillin resistant Staphylococcus aureus) Acute 07/21/15 Peripheral vascular disease Acute VRE (vancomycin-resistant Enterococci) Acute 06/23/15
[2016-05-23] MEDS: ERTAPENEM 0.5 GM in NS 100 ML IV SCH (12:01)
--- NOTE | 2016-05-23 12:36 | SOAPPROG ---
SOAP Progress Note Assessment/Plan: Assessment: 80 yo male s/p right toe amputation, cellulitis right foot, New GI bleed s/p clipping with concern for possible further bleeding from AVMs Had some melena this AM, foot still painful PE comfortable, slightly confused to place Right foot incision clean and dry, moderate tenderness to palpation over dorsum of foot with mild erythema diffusely Plan: continue ABX no further surgery at this time but will need close follow up, explained to patient today took cotton out from between toes and placed xerofoam, will need something between toes. 05/23/16 12:32 Objective: Vital Signs Temp Pulse Resp BP Pulse Ox 36.9 C 80 18 143/69 H 93 05/23/16 10:00 05/23/16 11:55 05/23/16 11:55 05/23/16 11:55 05/23/16 11:55 Microbiology 05/20/16 11:28 Gram Stain - Final Toe - Tissue 05/17/16 21:45 Blood Culture - Final Blood 05/17/16 21:37 Blood Culture - Final Blood Laboratory Results 05/23/16 10:55 05/23/16 05:45 05/22/16 05/23/16 05/24/16 05:59 05:59 05:59 Intake Total 1020 1817 Output Total 325 825 Balance 695 992 PT 15.9 SEC (12.0-15.0) H 05/22/16 03:30 INR 1.27 (0.83-1.16) H 05/22/16 03:30 ICD10 Worksheet Patient Problems: Problems Problem Status Onset Acute kidney injury Acute Cellulitis Acute Dehydration Acute Fever Acute MRSA (methicillin resistant Staphylococcus aureus) Acute 07/21/15 Peripheral vascular disease Acute VRE (vancomycin-resistant Enterococci) Acute 06/23/15
[2016-05-23 13:29] LABS: HEMOGLOBIN A1C 6.1 % (4.0-5.6)
[2016-05-23] MEDS ORDERED: risperiDONE 0.5 MG TAB PO ONE ×2 (13:31→16:59)
--- NOTE | 2016-05-23 13:38 | HOSPPROG ---
Hospitalist Progress Note Assessment/Plan: 80-year-old male admitted for a right toe infection. He has a known history of peripheral vascular disease, chronic kidney disease, hypertension, dementia, and diabetes mellitus. Arterial studies to the right lower extremity have shown limited flow to the lower foot and site of the amputation. He has lived at [place] x1 year. -postop day 3. Of right foot 2nd toe amputation and currently doing well and followed by surgery. He is continue on IV vancomycin a PICC line will be placed. Surgery is recommending daily wound care, something place between the 3rd and 4th toe, and close follow-up with surgery after discharge. He remains a question whether he has adequate arterial supply to heal this wound. Id recommends 7 days of antibiotics and then to stop. 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 See above. -new problem today GI bleeding on 05/22: Patient's hemoglobin fell to 5 with melena and black stool. 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 He is currently on Protonix IV and Q 6 hour hemoglobin checks. On 05/23 his hemoglobin fell below 7 and he was transfused 1 more unit of PRBCs. H&H is being checked q.6 hours. -new problem of agitation on 05/23: Patient suddenly in the afternoon became agitated. Though he has dementia he has previously been easily cooperative and pleasant. Is unclear if this is part of his baseline or something new. Vital signs otherwise are stable. He is alert and simply combative. I am giving him Risperdal to see if we can calm him in this acute event. -bronchospasm noted postoperative of the amputation. This has resolved. It was likely secondary to fluid excess and he receives Lasix 60 mg per day. - wound culture positive for MR ROWLAND. Patient is in isolation. -dementia: This is secondary to prior strokes and he seems to be at his baseline behavior. -CKD: Baseline creatinine is approximately 2.3 and he is currently at his baseline. We will monitor his vancomycin trough levels. Today's creatinine was 2.1. -chronic anemia: Currently at baseline. -hypertension: BP is well controlled on carvedilol and Lasix. -chronic pain: He is narcotic dependent and we continued his outpatient medications and his pain seems to be well controlled. -hyperglycemia: Etiology is unclear as he has no history of diabetes mellitus. We are checking a hemoglobin A1c Disposition: Unclear date of final disposition. Disposition will be to an SNF. He will complete a course of antibiotics of 7 days and have daily wound care to the right foot. Follow up will be with the wound clinic of Dr. Shah. Findings have been discussed with GI and ID, and surgery. Time: 40 minutes Subjective: Agitated and more confused than usual. He says he wants to have the wound open or he will break it and he wants to leave the hospital. Is making several irrational demands and is agitated. Vital signs are normal Objective: Vital Signs Temp Pulse Resp BP Pulse Ox 36.9 C 80 18 143/69 H 93 05/23/16 10:00 05/23/16 11:55 05/23/16 11:55 05/23/16 11:55 05/23/16 11:55 Microbiology 05/20/16 11:28 Gram Stain - Final Toe - Tissue 05/17/16 21:45 Blood Culture - Final Blood 05/17/16 21:37 Blood Culture - Final Blood Laboratory Results 05/23/16 10:55 05/23/16 05:45 05/22/16 05/23/16 05/24/16 05:59 05:59 05:59 Intake Total 1020 1817 Output Total 325 825 Balance 695 992 PT 15.9 SEC (12.0-15.0) H 05/22/16 03:30 INR 1.27 (0.83-1.16) H 05/22/16 03:30 - Time Spent With Patient Time Spent with Patient: greater than 35 minutes Time Spent with Patient: Greater than 35 minutes spent on this patients care, greater than 50% of time spent counseling, educating, and coordinating care regarding the above mentioned plan. - Pending Discharge Pending Discharge Within 24 Hours: No Pending Discharge Within 48 Hours: No - Physical Exam Constitutional: other (Agitated and more confused than usual) Eyes: PERRL Ears, Nose, Mouth, Throat: moist mucous membranes, hearing normal Cardiovascular: regular rate and rhythym, no murmur, rub, or gallop Respiratory: no respiratory distress, no rales or rhonchi Gastrointestinal: normoactive bowel sounds, soft, non-tender abdomen Skin: warm Musculoskeletal: other (Right foot shows and crust station in the wound area but the wound margins appear good with some serous drainage. The area is red and rubra but not with signs of cellulitis. Dressings have been changed with surgery and the case reviewed with surgery.) Neurologic: CN II-XII Intact Psychiatric: other (Agitated and more confused than usual) ICD10 Worksheet Patient Problems: Problems Problem Status Onset Peripheral vascular disease Acute Acute kidney injury Acute Fever Acute Dehydration Acute VRE (vancomycin-resistant Enterococci) Acute 06/23/15 MRSA (methicillin resistant Staphylococcus aureus) Acute 07/21/15 Cellulitis Acute
[2016-05-23 17:56] LABS: HEMOGLOBIN 7.9 g/dL (13.7-17.5)
[2016-05-23] MEDS: MIRTAZAPINE 15 MG TAB PO SCH (22:31)
[2016-05-24 03:50] LABS: HEMATOCRIT 24.2 % (40.0-51.0); HEMOGLOBIN 7.7 g/dL (13.7-17.5)
[2016-05-24] MEDS: PANTOPRAZOLE SODIUM 80 MG in NS 100 ML IV SCH (04:03)
[2016-05-24 05:59] LABS: HEMATOCRIT 26.3 % (40.0-51.0); HEMOGLOBIN 8.5 g/dL (13.7-17.5)
[2016-05-24] MEDS: FUROSEMIDE 20 MG TAB PO SCH (06:00)
[2016-05-24] MEDS: oxyCODONE IR 5 MG TAB PO PRN ×2 (06:00→21:49)
[2016-05-24] MEDS: CARVEDILOL 6.25 MG TAB PO SCH ×2 (06:00→17:34)
[2016-05-24] MEDS: IPRATROPIUM/ALBUTEROL 3 ML DEYVIAL IH SCH ×4 (06:09→21:41)
[2016-05-24] MEDS ORDERED: ALBUMIN 5% 250 ML IV ONE (09:00)
[2016-05-24] MEDS: TAMSULOSIN HCL 0.4 MG CAP PO SCH ×2 (10:09→20:45)
[2016-05-24] MEDS: LACTASE 3,000 UNIT TAB PO SCH ×3 (10:10→17:34)
[2016-05-24] MEDS: SENNOSIDES/DOCUSATE SODIUM TAB PO SCH ×2 (10:10→20:45)
[2016-05-24] MEDS: morphINE SR 15 MG TAB PO SCH ×3 (10:10→20:45)
[2016-05-24] MEDS: NYSTATIN POWDER 15 GM BTL TP SCH ×3 (10:10→21:49)
[2016-05-24] MEDS: POLYETHYLENE GLYCOL 3350 17 GM PKT PO SCH (10:11)
[2016-05-24] MEDS: SODIUM CL NASAL GEL 14.1 GM TUBE TP SCH ×2 (10:11→21:49)
[2016-05-24] MEDS ORDERED: ALTEPLASE 2 MG VIAL IVP PRN (12:03)
--- NOTE | 2016-05-24 12:05 | PCMIDPN ---
Assessment/Plan: Assessment/Plan: 1. Right DM foot infection, s/p 2nd toe prox phalanx amputation: - polymicrobial infection with mrsa, proteus - contact precautions, - on vancoradha -awaiting path results -on Day #3 of antibiotics post surgery. -picc line slightly out, will have IR re-evaluate it. Care coordinated with RN, hospitalist team -Continue current therapy. Meds vanco invanz. Subjective: afebrile. feels ok. denies sob. wearing o2. loose stools. chronic abd pain. has sensation of LE. Objective: Vital Signs Temp Pulse Resp BP Pulse Ox 36.4 C 60 14 163/72 H 93 05/24/16 08:19 05/24/16 11:20 05/24/16 11:20 05/24/16 08:19 05/24/16 11:20 Microbiology 05/20/16 11:28 Gram Stain - Final Toe - Tissue 05/17/16 21:45 Blood Culture - Final Blood 05/17/16 21:37 Blood Culture - Final Blood Laboratory Results 05/24/16 05:40 05/23/16 05:45 05/23/16 05/24/16 05/25/16 05:59 05:59 05:59 Intake Total 1817 841 440 Output Total 825 821 250 Balance 992 20 190 - Physical Exam General Appearance: alert, no apparent distress Respiratory: lungs clear Cardiac/Chest: regular rate, rhythm Extremities: other (right foot dressed. did not take down dressing as patient had to urgently use commode. left bka), No swelling Abdomen: normal bowel sounds, soft, tender (right abdomen.), No distended ICD10 Worksheet Patient Problems: Problems Problem Status Onset Acute kidney injury Acute Cellulitis Acute Dehydration Acute Fever Acute MRSA (methicillin resistant Staphylococcus aureus) Acute 07/21/15 Peripheral vascular disease Acute VRE (vancomycin-resistant Enterococci) Acute 06/23/15
[2016-05-24] MEDS: PANTOPRAZOLE SODIUM 40 MG TAB PO SCH ×2 (12:57→20:45)
[2016-05-24] MEDS: ERTAPENEM 0.5 GM in NS 100 ML IV SCH (13:19)
--- NOTE | 2016-05-24 13:30 | SOAPPROG ---
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 At risk for AVM s elsewhere in GI track. Having some melena and decline in H+H but better today. Hemodynamically stable. Plan: Monitor H+H and monitor for e/o rebleeding Recommend repeat EGD with colon if e/o rebleeding Consider slowly advance diet if H+H stable 05/24/16 13:30 Subjective: CC GIB Pt with some melena Objective: Vital Signs Temp Pulse Resp BP Pulse Ox 36.9 C 65 18 162/78 H 91 L 05/24/16 12:00 05/24/16 12:00 05/24/16 12:00 05/24/16 12:00 05/24/16 12:00 Microbiology 05/20/16 11:28 Gram Stain - Final Toe - Tissue Laboratory Results 05/24/16 05:40 05/23/16 05:45 05/23/16 05/24/16 05/25/16 05:59 05:59 05:59 Intake Total 1817 841 790 Output Total 825 821 250 Balance 992 20 540 PT 15.9 SEC (12.0-15.0) H 05/22/16 03:30 INR 1.27 (0.83-1.16) H 05/22/16 03:30 Physical Exam - Physical Exam General Appearance: alert, no apparent distress Respiratory: lungs clear Cardiac/Chest: regular rate, rhythm Abdomen: non-tender, soft ICD10 Worksheet Patient Problems: Problems Problem Status Onset Acute kidney injury Acute Cellulitis Acute Dehydration Acute Fever Acute MRSA (methicillin resistant Staphylococcus aureus) Acute 07/21/15 Peripheral vascular disease Acute VRE (vancomycin-resistant Enterococci) Acute 06/23/15
--- NOTE | 2016-05-24 13:45 | HOSPPROG ---
Hospitalist Progress Note Assessment/Plan: 80-year-old male new to my care today admitted for a right toe infection. -postop day 4. Of right foot 2nd toe amputation and currently doing well and followed by surgery. 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 See above. -Acute GI bleed secondary to AVM -change protonix to PO -cont to monitor and reconsult GI for repeat endo as indicated -agitation/delirium (improved) -monitor -bronchospasm noted postoperative of the amputation. This has resolved. It was likely secondary to fluid excess and he receives Lasix 60 mg per day. - wound culture positive for MRSA. Patient is in isolation. -dementia: This is secondary to prior strokes and he seems to be at his baseline behavior. -CKD: Baseline creatinine is approximately 2.3 and he is currently at his baseline. We will monitor his vancomycin trough levels. Today's creatinine was 2.1. -chronic anemia: Currently at baseline. -hypertension: BP is well controlled on carvedilol and Lasix. -chronic pain: He is narcotic dependent and we continued his outpatient medications and his pain seems to be well controlled. -hyperglycemia: Etiology is unclear as he has no history of diabetes mellitus. We are checking a hemoglobin A1c Disposition: DC to SNF possibly on IV abx once H/H stable Subjective: pt seen with medical roping tender present. pain controlled. denies active bleeding. feels weak Objective: Vital Signs Temp Pulse Resp BP Pulse Ox 36.9 C 65 18 162/78 H 91 L 05/24/16 12:00 05/24/16 12:00 05/24/16 12:00 05/24/16 12:00 05/24/16 12:00 Microbiology 05/20/16 11:28 Gram Stain - Final Toe - Tissue Laboratory Results 05/24/16 05:40 05/23/16 05:45 05/23/16 05/24/16 05/25/16 05:59 05:59 05:59 Intake Total 1817 841 790 Output Total 825 821 250 Balance 992 20 540 PT 15.9 SEC (12.0-15.0) H 05/22/16 03:30 INR 1.27 (0.83-1.16) H 04/16/17 03:30 - Physical Exam Constitutional: no apparent distress, appears nourished, not in pain Cardiovascular: regular rate and rhythym, no murmur, rub, or gallop, No edema Respiratory: no respiratory distress, no rales or rhonchi, clear to auscultation Gastrointestinal: normoactive bowel sounds, soft, non-tender abdomen, no palpable masses, No guarding, No rebound Neurologic: AAOx3, sensation intact bilaterally ICD10 Worksheet Patient Problems: Problems Problem Status Onset Peripheral vascular disease Acute Acute kidney injury Acute Fever Acute Dehydration Acute VRE (vancomycin-resistant Enterococci) Acute 06/23/15 MRSA (methicillin resistant Staphylococcus aureus) Acute 07/21/15 Cellulitis Acute
[2016-05-24] MEDS: VANCOMYCIN 750 MG in D5W 150 ML IV SCH (13:49)
[2016-05-24] MEDS: MIRTAZAPINE 15 MG TAB PO SCH (20:45)
[2016-05-25] MEDS: oxyCODONE IR 5 MG TAB PO PRN ×2 (03:48→05:39)
[2016-05-25 05:12] LABS: HEMATOCRIT 23.8 % (40.0-51.0); HEMOGLOBIN 7.7 g/dL (13.7-17.5)
[2016-05-25] MEDS: HEPARIN 5,000 UNIT/0.5 ML SYR SC SCH ×2 (05:54→08:05)
[2016-05-25] MEDS: IPRATROPIUM/ALBUTEROL 3 ML DEYVIAL IH SCH ×4 (06:30→22:11)
[2016-05-25] MEDS: CARVEDILOL 6.25 MG TAB PO SCH ×2 (08:00→17:12)
[2016-05-25] MEDS: LACTASE 3,000 UNIT TAB PO SCH ×3 (08:01→17:12)
[2016-05-25] MEDS: SENNOSIDES/DOCUSATE SODIUM TAB PO SCH ×2 (08:02→22:10)
[2016-05-25] MEDS: PANTOPRAZOLE SODIUM 40 MG TAB PO SCH ×2 (08:03→20:44)
[2016-05-25] MEDS: morphINE SR 15 MG TAB PO SCH ×3 (08:03→20:44)
[2016-05-25] MEDS: TAMSULOSIN HCL 0.4 MG CAP PO SCH ×2 (08:03→20:44)
[2016-05-25] MEDS: FUROSEMIDE 20 MG TAB PO SCH (08:04)
[2016-05-25] MEDS: POLYETHYLENE GLYCOL 3350 17 GM PKT PO SCH (08:05)
[2016-05-25] MEDS: VANCOMYCIN 750 MG in D5W 150 ML IV SCH (08:06)
[2016-05-25] MEDS: SODIUM CL NASAL GEL 14.1 GM TUBE TP SCH ×2 (08:12→22:10)
[2016-05-25] MEDS: NYSTATIN POWDER 15 GM BTL TP SCH ×3 (08:12→22:59)
--- NOTE | 2016-05-25 10:41 | SOAPPROG ---
SOAP Progress Note Assessment/Plan: Assessment/Plan: s/p amputation 2nd toe wound looks great, still has a suture. continue dressings with gauze or cotton btwn remaining toes. there is a small clean shallow ulceration of the medial side of 4th toe. Pain controlled walking boot to off load PT GI bleed, s/p clipping of AVM. H&H down today. Defer to medicine and GI-- possible repeat scope. Will follow in case unlikely surgical intervention warranted. S: mild pain. O: inc cdi, no erythema, no drainage, 0/5 cm shallow ulceration of medial 4th toe, no erythema. bka site well healed 05/25/16 10:32 Objective: Vital Signs Temp Pulse Resp BP Pulse Ox 36.8 C 59 L 18 162/71 H 95 05/25/16 07:51 05/25/16 07:51 05/25/16 07:51 05/25/16 07:51 05/25/16 07:51 Microbiology 05/20/16 11:28 Gram Stain - Final Toe - Tissue Laboratory Results 05/25/16 04:57 05/23/16 05:45 05/24/16 05/25/16 05/26/16 05:59 05:59 05:59 Intake Total 841 2310 Output Total 821 1125 150 Balance 20 1185 -150 PT 15.9 SEC (12.0-15.0) H 05/22/16 03:30 INR 1.27 (0.83-1.16) H 05/22/16 03:30 ICD10 Worksheet Patient Problems: Problems Problem Status Onset Acute kidney injury Acute Cellulitis Acute Dehydration Acute Fever Acute MRSA (methicillin resistant Staphylococcus aureus) Acute 07/21/15 Peripheral vascular disease Acute VRE (vancomycin-resistant Enterococci) Acute 06/23/15
[2016-05-25] MEDS: ERTAPENEM 0.5 GM in NS 100 ML IV SCH ×2 (10:59→12:52)
--- NOTE | 2016-05-25 12:42 | SOAPPROG ---
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 At risk for AVM s elsewhere in GI track. Still with slow decline in H+H. Had melenic stool last night no BM today. Pt now with abdominal pain LLQ Plan: Check Abd film now to r/o obstruction If film OK then begin prep for EGD and colon in AM 05/25/16 12:39 Subjective: CC abd pain Pt c/o abd pain in LLQ radiating to groin in to leg. States no BRB or melena today. Objective: Vital Signs Temp Pulse Resp BP Pulse Ox 36.8 C 65 16 175/40 H 96 05/25/16 07:51 05/25/16 11:51 05/25/16 10:46 05/25/16 11:51 05/25/16 11:51 Microbiology 05/20/16 11:28 Gram Stain - Final Toe - Tissue Laboratory Results 05/25/16 04:57 05/23/16 05:45 05/24/16 05/25/16 05/26/16 05:59 05:59 05:59 Intake Total 841 2310 Output Total 821 1125 150 Balance 20 1185 -150 PT 15.9 SEC (12.0-15.0) H 05/22/16 03:30 INR 1.27 (0.83-1.16) H 05/22/16 03:30 Physical Exam - Physical Exam General Appearance: alert Respiratory: lungs clear, normal breath sounds Cardiac/Chest: regular rate, rhythm Abdomen: normal bowel sounds, other (there is distension on left side and tender no rebound) ICD10 Worksheet Patient Problems: Problems Problem Status Onset Acute kidney injury Acute Cellulitis Acute Dehydration Acute Fever Acute MRSA (methicillin resistant Staphylococcus aureus) Acute 07/21/15 Peripheral vascular disease Acute VRE (vancomycin-resistant Enterococci) Acute 06/23/15
--- NOTE | 2016-05-25 14:36 | HOSPPROG ---
Hospitalist Progress Note Assessment/Plan: 80-year-old male new admitted for a right toe infection. -postop day 5. Of right foot 2nd toe amputation and currently doing well and followed by surgery. -continue abx per ID -right foot ulcers/cellulitis, status post right foot amputation of the 2nd toe. See above. -Acute GI bleed secondary to AVM with decreasing H/H -cont protonix -I discussed the case with Dr. Roque who will plan on repeating an EGD/ Colon tomorrow -cont to monitor h/h -agitation/delirium (improved) -monitor -bronchospasm noted postoperative of the amputation. This has resolved. It was likely secondary to fluid excess and he receives Lasix 60 mg per day. - wound culture positive for MRSA. Patient is in isolation. -dementia: This is secondary to prior strokes and he seems to be at his baseline behavior. -CKD with improving creatinine: Baseline creatinine is approximately 2.3 and he is currently at his baseline. We will monitor his vancomycin trough levels. Today's creatinine was 2.1. -acute on chronic anemia: see above -hypertension: BP is well controlled on carvedilol and Lasix. -chronic pain: He is narcotic dependent and we continued his outpatient medications and his pain seems to be well controlled. -Borderline DM hyperglycemia: Etiology is unclear as he has no history of diabetes mellitus. a1c 6.1 Disposition: DC to SNF possibly on IV abx once H/H stable Subjective: pt seen with medical corporate events director present. no new complaints. no fevers or chills Objective: Vital Signs Temp Pulse Resp BP Pulse Ox 36.8 C 65 16 175/40 H 96 05/25/16 07:51 05/25/16 11:51 05/25/16 10:46 05/25/16 11:51 05/25/16 11:51 Microbiology 05/20/16 11:28 Gram Stain - Final Toe - Tissue Laboratory Results 05/25/16 04:57 05/23/16 05:45 05/24/16 05/25/16 05/26/16 05:59 05:59 05:59 Intake Total 841 2310 Output Total 821 1125 150 Balance 20 1185 -150 PT 15.9 SEC (12.0-15.0) H 05/22/16 03:30 INR 1.27 (0.83-1.16) H 05/22/16 03:30 - Physical Exam Constitutional: no apparent distress, appears nourished, not in pain Ears, Nose, Mouth, Throat: moist mucous membranes, hearing normal, ears appear normal, no oral mucosal ulcers Cardiovascular: regular rate and rhythym, no murmur, rub, or gallop Respiratory: no respiratory distress, no rales or rhonchi, clear to auscultation Gastrointestinal: normoactive bowel sounds, distension, No guarding, No rebound Genitourinary: no bladder fullness, no bladder tenderness, no renal bruits ICD10 Worksheet Patient Problems: Problems Problem Status Onset Peripheral vascular disease Acute Acute kidney injury Acute Fever Acute Dehydration Acute VRE (vancomycin-resistant Enterococci) Acute 06/23/15 MRSA (methicillin resistant Staphylococcus aureus) Acute 07/21/15 Cellulitis Acute
--- NOTE | 2016-05-25 15:16 | PCMIDPN ---
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 Pathology margins pending for assessment of residual osteomyelitis post amputation. Continue vancomycin and ertapenem. Hope will be able to discontinue these if margins are negative. Repeat creatinine and reassess vancomycin trough in the setting of underlying renal insufficiency to ensure no vancomycin associated nephrotoxicity. 05/25/16 15:13 Subjective: Patient without complaints. Overall feels improved. Objective: Vital Signs Temp Pulse Resp BP Pulse Ox 36.8 C 65 16 175/40 H 96 05/25/16 07:51 05/25/16 11:51 05/25/16 10:46 05/25/16 11:51 05/25/16 11:51 Microbiology 05/20/16 11:28 Gram Stain - Final Toe - Tissue Laboratory Results 05/25/16 04:57 05/23/16 05:45 05/24/16 05/25/16 05/26/16 05:59 05:59 05:59 Intake Total 841 2310 Output Total 821 1125 150 Balance 20 1185 -150 Vancomycin # 9 Ertapenem # 5 (antibiotics # 9) Operative cultures with growth of MRSA and Proteus Laboratory Tests 05/22/16 22:45 Vancomycin Trough 17.0 - Physical Exam General Appearance: alert, no apparent distress EENT: pharynx normal, No scleral icterus Extremities: inflammation (Right 2nd toe amputation site with intact incision; no drainage; no erythema present) Abdomen: non-tender, No distended ICD10 Worksheet Patient Problems: Problems Problem Status Onset Acute kidney injury Acute Cellulitis Acute Dehydration Acute Fever Acute MRSA (methicillin resistant Staphylococcus aureus) Acute 07/21/15 Peripheral vascular disease Acute VRE (vancomycin-resistant Enterococci) Acute 06/23/15
[2016-05-25] MEDS ORDERED: GOLYTELY 4000 ML BTL PO ONE (16:25)
[2016-05-25] MEDS: MIRTAZAPINE 15 MG TAB PO SCH (20:44)
[2016-05-26 05:15] LABS: % IMMATURE GRANULYOCYTES 0.2 % (0.0-1.1); ABSOLUTE IMMATURE GRANULOCYTES 0.01 10^3/uL (0.00-0.10); ADD DIFF? NO; ADD MORPH? NO; ADD SCAN? NO; ATYPICAL LYMPHOCYTE FLAG 0 (0-99); FRAGMENT RBC FLAG 0 (0-99); HEMATOCRIT 25.3 % (40.0-51.0); HEMOGLOBIN 8.1 g/dL (13.7-17.5); LEFT SHIFT FLG 0 (0-99); LIPEMIA HEMOLYSIS FLAG 80 (0-99); MEAN CELL HEMOGLOBIN 26.6 pg (27.9-34.1); MEAN CELL VOLUME 83.2 fL (81.5-99.8); MEAN PLATELET VOLUME 9.6 fL (8.7-11.7); PLATELET CLUMPS FLAG 10 (0-99); PLATELET COUNT 260 10^3/uL (150-400); RED BLOOD CELL COUNT 3.04 10^6/uL (4.40-6.38); RED CELL DISTRIBUTION WIDTH 17.7 % (11.5-15.2)
[2016-05-26 05:30] LABS: ANION GAP 7 mEq/L (8-16); CALCIUM 8.4 mg/dL (8.5-10.4); CARBON DIOXIDE 31 mEq/l (22-31); CHLORIDE 98 mEq/L (97-110); CREATININE 1.4 mg/dL (0.7-1.3); GLOMERULAR FILTRATION RATE 49; GLUCOSE 86 mg/dL (70-100); POTASSIUM 3.4 mEq/L (3.5-5.2); SODIUM 136 mEq/L (134-144)
[2016-05-26] MEDS: IPRATROPIUM/ALBUTEROL 3 ML DEYVIAL IH SCH ×4 (05:58→21:54)
[2016-05-26] MEDS: CARVEDILOL 6.25 MG TAB PO SCH ×2 (08:06→17:41)
[2016-05-26] MEDS: PANTOPRAZOLE SODIUM 40 MG TAB PO SCH ×2 (08:06→21:05)
[2016-05-26] MEDS: morphINE SR 15 MG TAB PO SCH ×3 (08:06→21:06)
[2016-05-26] MEDS: FUROSEMIDE 20 MG TAB PO SCH (08:07)
[2016-05-26] MEDS: SODIUM CL NASAL GEL 14.1 GM TUBE TP SCH ×2 (08:08→21:21)
[2016-05-26] MEDS: LACTASE 3,000 UNIT TAB PO SCH ×3 (08:08→17:41)
[2016-05-26] MEDS: POLYETHYLENE GLYCOL 3350 17 GM PKT PO SCH (08:08)
[2016-05-26] MEDS: NYSTATIN POWDER 15 GM BTL TP SCH ×3 (08:08→21:22)
[2016-05-26] MEDS: TAMSULOSIN HCL 0.4 MG CAP PO SCH ×2 (08:09→21:05)
[2016-05-26] MEDS: SENNOSIDES/DOCUSATE SODIUM TAB PO SCH ×2 (08:09→21:05)
[2016-05-26] MEDS ORDERED: MIDAZOLAM 2 MG/2 ML VIAL ONE (09:27)
[2016-05-26] MEDS ORDERED: PROPOFOL 200 MG/20 ML VIAL ONE (09:27)
--- NOTE | 2016-05-26 10:30 | SUROPNOTE ---
[facility] Operative Report - Surgery EGD and colon full note dictated EGD: gastritis bx Clips in place no active bleeding now old blood no other AVMs seen Colon Barker diverticulitis no old blood no active bleeding No AVM seen Hemorrhoids Advance diet if significant rebleeding consider Tagged cell scan or consider outpt capsule endoscopy
--- NOTE | 2016-05-26 11:10 | GPN ---
[f rep st] PROCEDURE NOTE DATE OF PROCEDURE: 05/26/2016 PROCEDURE PERFORMED: Upper endoscopy with biopsy. INSTRUMENT USED: Olympus gastroscope. MEDICINES GIVEN: Per Anesthesiology. INDICATIONS: Patient is a 80-year-old, who is presenting with anemia and evidence of bleeding, unde rwent an upper endoscopy 4 days ago with bleeding AVM treated in the duodenal. Patient had continue d decreased blood count and some bright red blood. Due to concerns for possible other AVMs, recomme nded to repeat upper and lower endoscopy to assess for other sites of bleeding. Prior to procedure, exam performed including auscultation of heart and lungs within normal limits. Patient's mental st atus was not appropriate; therefore, informed consent was obtained on the phone from his son, Emmanuel . After explanation of the risks of bleeding, perforation, or effects of sedation, his son, Emmanuel, gave consent on behalf of his father. FINDINGS: Patient was placed in left lateral decubitus position. Meds were given by Anesthesiology to achieve adequate conscious sedation. Inserted through the bite block and esophagus which is nor mal. Scope passed in the stomach. Better inspection of the stomach today as there is no old food. There was some mild to moderate gastritis noted in the antrum which was biopsied; however, no erosi ons or AVMs were seen. There was no old blood or active bleeding. Scope then passed in the duodenu m. Again, no old blood or active bleeding. Clips were seen in place in the duodenum but no other A VMs. Scope passed this into the distal duodenum in the 4th portion. No other AVMs were seen. Scop e was removed from the patient, tolerated procedure well. Time spent was approximately 10 minutes. ASSESSMENT: 1. Gastritis. 2. Clips in place over prior bleeding lesion in the duodenum. 3. No other bleeding lesions seen, no active bleeding. PLAN: Will await biopsy to assess for H pylori. Recommend a PPI. Will proceed with colonoscopy. Thank you for this consult. /[id number]/MODL
--- NOTE | 2016-05-26 11:10 | GPN ---
[f rep st] PROCEDURE NOTE DATE OF PROCEDURE: 05/26/2016 PROCEDURE PERFORMED: Colonoscopy. INSTRUMENT USED: Olympus adult colonoscope. MEDICINE GIVEN: Per Anesthesiology. INDICATIONS: Patient is a 80-year-old with anemia and recurrent bleeding with blood in stools, refe rred for upper and lower endoscopy for evaluation. Patient did have an AVM found on upper endoscopy 4 or 5 days ago. Prior to the procedure, exam was performed, including auscultation heart and lungs. Patient's statu s was not appropriate to give consent, and therefore consent was obtained by phone via his son, nataly quijano explanation of the risks of bleeding, perforation, and sedation, and he gave informed consent on b ehalf of his father. FINDINGS: Patient was placed in the left lower decubitus position. Perianal rectal exam was perfor med, remarkable for external hemorrhoids. The instrument was inserted into the rectum, advanced by direct visualization to the cecum, which was easily reached and identified by the presence of the il eocecal valve, appendiceal orifice, and the confluence of the tinea. From this area, the scope was slowly withdrawn . The prep was adequate for examination. No AVMs, no active bleeding, n o old blood seen throughout the colonoscopy. The scope was then passed into the ilium, which also a ppeared normal. I saw no AVMs here. There was ch diverticulosis noted throughout the colon, but w ithout stigmata of recent bleeding. Retroflexion was performed in the rectum and revealed hemorrhoi ds. The scope was removed from the patient, who tolerated the procedure well. Time spent was appro ximately 20 minutes. ASSESSMENT: 1. Ch diverticulosis, however no active bleeding, no old blood. All bleeding has now stopped by e ndoscopic visualization. 2. No arteriovenous malformations seen in the colon. 3. Hemorrhoids. I suspect that this may be also contributing to some of his bleeding that he sees intermittently. PLAN: Recommend advance diet. Return to the hospital floor for his ongoing care. If patient dorita d have evidence of significant active bleeding, would recommend a tagged cell scan to help identify site. If he has recurrent anemia, then could consider at some point an outpatient capsule endoscopy to look for AVMs involving the small bowel. Thanks for this consult. /[id number]/MODL
[2016-05-26] MEDS: VANCOMYCIN 750 MG in D5W 150 ML IV SCH (11:19)
[2016-05-26] MEDS: oxyCODONE IR 5 MG TAB PO PRN (11:57)
[2016-05-26] MEDS: ERTAPENEM 0.5 GM in NS 100 ML IV SCH ×3 (12:24→12:50)
--- NOTE | 2016-05-26 14:10 | HOSPPROG ---
Hospitalist Progress Note Assessment/Plan: 80-year-old male new admitted for a right toe infection. -postop day 6 right foot 2nd toe amputation and currently doing well and followed by surgery. -continue abx per ID -right foot ulcers/cellulitis, status post right foot amputation of the 2nd toe. See above. 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 This has resolved. It was likely secondary to fluid excess and he receives Lasix 60 mg per day. - wound culture positive for MRSA. Patient is in isolation. -dementia: This is secondary to prior strokes and he seems to be at his baseline behavior. -CKD with improving creatinine -acute on chronic anemia: see above -hypertension: BP is well controlled on carvedilol and Lasix. -chronic pain: He is narcotic dependent and we continued his outpatient medications and his pain seems to be well controlled. -Borderline DM hyperglycemia: Etiology is unclear as he has no history of diabetes mellitus. a1c 6.1 Disposition:possible dc to snf 05/27 if h/h stable Subjective: no new complaints. seen with medical certified court interpreter present Objective: Vital Signs Temp Pulse Resp BP Pulse Ox 36.6 C 68 16 122/71 H 91 L 05/26/16 12:38 05/26/16 13:39 05/26/16 12:38 05/26/16 13:39 05/26/16 13:39 Microbiology 05/20/16 11:28 Gram Stain - Final Toe - Tissue Laboratory Results 05/26/16 05:00 05/26/16 05:00 05/25/16 05/26/16 05/27/16 05:59 05:59 05:59 Intake Total 2310 Output Total 1125 950 Balance 1185 -950 PT 15.9 SEC (12.0-15.0) H 05/22/16 03:30 INR 1.27 (0.83-1.16) H 05/22/16 03:30 kub visualized and personally interpreted neg for obstruction - Physical Exam Constitutional: no apparent distress, appears nourished, not in pain Cardiovascular: regular rate and rhythym, no murmur, rub, or gallop Respiratory: no respiratory distress, no rales or rhonchi, clear to auscultation Gastrointestinal: normoactive bowel sounds, soft, non-tender abdomen, no palpable masses, distension, No guarding, No rebound Skin: no rashes or abrasions, no fluctuance, no induration ICD10 Worksheet Patient Problems: Problems Problem Status Onset Peripheral vascular disease Acute Acute kidney injury Acute Fever Acute Dehydration Acute VRE (vancomycin-resistant Enterococci) Acute 06/23/15 MRSA (methicillin resistant Staphylococcus aureus) Acute 07/21/15 Cellulitis Acute
[2016-05-26] MEDS: MIRTAZAPINE 15 MG TAB PO SCH (21:06)
[2016-05-27] MEDS: IPRATROPIUM/ALBUTEROL 3 ML DEYVIAL IH SCH ×3 (05:26→16:29)
[2016-05-27 05:46] LABS: % IMMATURE GRANULYOCYTES 0.2 % (0.0-1.1); ABSOLUTE IMMATURE GRANULOCYTES 0.01 10^3/uL (0.00-0.10); ADD DIFF? NO; ADD MORPH? NO; ADD SCAN? NO; ATYPICAL LYMPHOCYTE FLAG 10 (0-99); FRAGMENT RBC FLAG 0 (0-99); HEMATOCRIT 25.5 % (40.0-51.0); HEMOGLOBIN 8.2 g/dL (13.7-17.5); LEFT SHIFT FLG 0 (0-99); LIPEMIA HEMOLYSIS FLAG 80 (0-99); MEAN CELL HEMOGLOBIN 26.5 pg (27.9-34.1); MEAN CELL HEMOGLOBIN CONCENTR. 32.2 g/dL (32.4-36.7); MEAN CELL VOLUME 82.5 fL (81.5-99.8); MEAN PLATELET VOLUME 9.3 fL (8.7-11.7); PLATELET CLUMPS FLAG 0 (0-99); PLATELET COUNT 256 10^3/uL (150-400); RED BLOOD CELL COUNT 3.09 10^6/uL (4.40-6.38); RED CELL DISTRIBUTION WIDTH 17.7 % (11.5-15.2)
[2016-05-27] MEDS: POLYETHYLENE GLYCOL 3350 17 GM PKT PO SCH (08:44)
[2016-05-27] MEDS: NYSTATIN POWDER 15 GM BTL TP SCH ×2 (08:46→17:40)
[2016-05-27] MEDS: VANCOMYCIN 750 MG in D5W 150 ML IV SCH (08:49)
[2016-05-27] MEDS: PANTOPRAZOLE SODIUM 40 MG TAB PO SCH (08:59)
[2016-05-27] MEDS: CARVEDILOL 6.25 MG TAB PO SCH ×2 (08:59→17:38)
[2016-05-27] MEDS: TAMSULOSIN HCL 0.4 MG CAP PO SCH (08:59)
[2016-05-27] MEDS: morphINE SR 15 MG TAB PO SCH ×2 (08:59→17:38)
[2016-05-27] MEDS: LACTASE 3,000 UNIT TAB PO SCH ×2 (09:00→11:31)
[2016-05-27] MEDS: SODIUM CL NASAL GEL 14.1 GM TUBE TP SCH (09:00)
[2016-05-27] MEDS: SENNOSIDES/DOCUSATE SODIUM TAB PO SCH (09:00)
[2016-05-27 09:11] LABS: ANION GAP 5 mEq/L (8-16); CALCIUM 8.7 mg/dL (8.5-10.4); CARBON DIOXIDE 32 mEq/l (22-31); CHLORIDE 101 mEq/L (97-110); CREATININE 1.3 mg/dL (0.7-1.3); GLOMERULAR FILTRATION RATE 53; GLUCOSE 109 mg/dL (70-100); POTASSIUM 3.9 mEq/L (3.5-5.2); SODIUM 138 mEq/L (134-144)
--- NOTE | 2016-05-27 09:32 | SOAPPROG ---
SOAP Progress Note Assessment/Plan: Assessment: GIB now resolved, no other AVMs or other lesions seen Gastritis Plan: Low risk for rebleeding Rec PO PPI once daily Will sign off 05/27/16 09:30 Subjective: CC Abd pain States pain better no bleeding Objective: Vital Signs Temp Pulse Resp BP Pulse Ox 36.4 C 62 16 131/80 H 100 05/27/16 07:32 05/27/16 08:59 05/27/16 07:32 05/27/16 08:59 05/27/16 07:32 Laboratory Results 05/27/16 05:30 05/27/16 08:45 05/26/16 05/27/16 05/28/16 05:59 05:59 05:59 Intake Total 500 Output Total 950 Balance -950 500 PT 15.9 SEC (12.0-15.0) H 05/22/16 03:30 INR 1.27 (0.83-1.16) H 05/22/16 03:30 Physical Exam - Physical Exam General Appearance: alert, no apparent distress Respiratory: lungs clear, normal breath sounds Cardiac/Chest: regular rate, rhythm Abdomen: normal bowel sounds, non-tender, soft ICD10 Worksheet Patient Problems: Problems Problem Status Onset Acute kidney injury Acute Cellulitis Acute Dehydration Acute Fever Acute MRSA (methicillin resistant Staphylococcus aureus) Acute 07/21/15 Peripheral vascular disease Acute VRE (vancomycin-resistant Enterococci) Acute 06/23/15
[2016-05-27] MEDS: FUROSEMIDE 20 MG TAB PO SCH (10:44)
--- NOTE | 2016-05-27 10:56 | PCMIDPN ---
Assessment/Plan: 1. Right diabetic foot infection status post amputation right 2nd toe: I spoke with Dr. Eros Higgins, who told me that hopefully the pathology results will be back this afternoon----if no evidence of bony involvement, will stop all antibiotics and the patient can be discharged. He will call me on my cell phone. Subjective: Patient is in good spirits. No complaints. Objective: Vancomycin 750 mg IV daily Ertapenem 0.5 g IV daily Afebrile Vital Signs Temp Pulse Resp BP Pulse Ox 36.4 C 60 16 153/64 H 99 05/27/16 07:32 05/27/16 10:11 05/27/16 07:32 05/27/16 10:11 05/27/16 10:11 Laboratory Results 05/27/16 05:30 05/27/16 08:45 05/26/16 05/27/16 05/28/16 05:59 05:59 05:59 Intake Total 500 Output Total 950 Balance -950 500 No new microbiology - Physical Exam General Appearance: alert, no apparent distress Extremities: other (Right 2nd toe amputation site is clean with sutures in place. Minimal serous drainage. No purulence, erythema or surrounding cellulitis. PICC line right upper extremity looks fine.) ICD10 Worksheet Patient Problems: Problems Problem Status Onset Acute kidney injury Acute Cellulitis Acute Dehydration Acute Fever Acute MRSA (methicillin resistant Staphylococcus aureus) Acute 07/21/15 Peripheral vascular disease Acute VRE (vancomycin-resistant Enterococci) Acute 06/23/15
--- NOTE | 2016-05-27 11:12 | SOAPPROG ---
SOAP Progress Note Assessment/Plan: Assessment/Plan: s/p amputation 2nd toe, GIB Minimal serosanguinous drainage at toe amp site. No erythema. Continue dressings with gauze or cotton btwn remaining toes. Awaiting path results re: possible bony involvement. H&H stable. Possible d/c soon. F/u c Dr. Fang per d/ c plan instructions. 05/27/16 11:10 Objective: Vital Signs Temp Pulse Resp BP Pulse Ox 36.4 C 60 16 153/64 H 99 05/27/16 07:32 05/27/16 10:11 05/27/16 07:32 05/27/16 10:11 05/27/16 10:11 Laboratory Results 05/27/16 05:30 05/27/16 08:45 05/26/16 05/27/16 05/28/16 05:59 05:59 05:59 Intake Total 500 Output Total 950 Balance -950 500 PT 15.9 SEC (12.0-15.0) H 05/22/16 03:30 INR 1.27 (0.83-1.16) H 05/22/16 03:30 ICD10 Worksheet Patient Problems: Problems Problem Status Onset Acute kidney injury Acute Cellulitis Acute Dehydration Acute Fever Acute MRSA (methicillin resistant Staphylococcus aureus) Acute 07/21/15 Peripheral vascular disease Acute VRE (vancomycin-resistant Enterococci) Acute 06/23/15
[2016-05-27 11:25] VITALS: BP 159/87; TEMP 98.3
[2016-05-27] MEDS: ERTAPENEM 0.5 GM in NS 100 ML IV SCH (11:31)
--- NOTE | 2016-05-27 15:13 | PDIAF ---
- Diagnosis Diagnosis: osteomyelitis/anemia secodnary to [facility] Code Status: Full Code - Medication Management Discharge Medications: Medications to Continue on Transfer Carvedilol [Coreg (*)] 12.5 mg PO BID@05/17/16 [Last Taken 05/17/16 08:00] Furosemide [Lasix 40 MG (*)] 60 mg PO DAILY@05/17/16 [Last Taken 05/17/16 08: 00] Lactase [Lactase 3000 Unit (*)] 3,000 unit PO TID@05/17/16 [Last Taken 05/17/16 11:00] Mirtazapine 15 mg PO DAILY@05/17/16 [Last Taken 05/16/16 20:00] Nystatin Powder [Mycostatin Powder] 1 shannen TOP TID@,05/17/16 [Last Taken 05/16/16 22:00] Polyethylene Glycol 3350 [Miralax 17 gm (*)] 17 gm PO DAILY@05/17/16 [Last Taken 05/17/16 08:00] Sodium Cl Nasal Gel [[place] Saline Nasal Gel] 1 shannen EACHNARE BID 05/17/16 [Last Taken 05/17/16 08:00] Tamsulosin HCl [Flomax 0.4 MG (*)] 0.4 mg PO BID@05/17/16 [Last Taken 12/23 08:00] morphINE SR [Ms Contin/Oramorph 15 mg (*)] 15 mg PO TID@,05/17/16 [Last Taken Unknown] oxyCODONE IR [Oxycodone Ir (*)] 5 mg PO Q4H PRN 05/17/16 [Last Taken Unknown] oxyCODONE IR [Oxycodone Ir (*)] 10 mg PO Q4H PRN 05/17/16 [Last Taken 05/17/16 08:26] Discharge Medications: Refer to the Discharge Home Medication list for PRN reason. - Orders Diet Recommendation: no restrictions on diet Diet Texture: Regular Texture Diet - Follow Up Care Current Providers and Referrals: Javier Fang MD [Medical Doctor] - follow up in 2 weeks (f/u 2-3 weeks from surgery (05/20) with Dr. Fang) Patient,NotPresent [Primary Care Provider] -
--- NOTE | 2016-05-27 15:16 | PDIAF ---
- Diagnosis Diagnosis: osteomyelitis/anemia secodnary to [facility] Code Status: Full Code - Medication Management Discharge Medications: Medications to Continue on Transfer Carvedilol [Coreg (*)] 12.5 mg PO BID@05/17/16 [Last Taken 05/17/16 08:00] Furosemide [Lasix 40 MG (*)] 60 mg PO DAILY@05/17/16 [Last Taken 05/17/16 08: 00] Lactase [Lactase 3000 Unit (*)] 3,000 unit PO TID@,05/17/16 [Last Taken 05/17/16 11:00] Mirtazapine 15 mg PO DAILY@05/17/16 [Last Taken 05/16/16 20:00] Nystatin Powder [Mycostatin Powder] 1 shannen TOP TID@,,05/17/16 [Last Taken 05/16/16 22:00] Polyethylene Glycol 3350 [Miralax 17 gm (*)] 17 gm PO DAILY@05/17/16 [Last Taken 05/17/16 08:00] Sodium Cl Nasal Gel [[place] Saline Nasal Gel] 1 shannen EACHNARE BID 05/17/16 [Last Taken 05/17/16 08:00] Tamsulosin HCl [Flomax 0.4 MG (*)] 0.4 mg PO BID@05/17/16 [Last Taken 12/23 08:00] morphINE SR [Ms Contin/Oramorph 15 mg (*)] 15 mg PO TID@,,05/17/16 [Last Taken Unknown] oxyCODONE IR [Oxycodone Ir (*)] 5 mg PO Q4H PRN 05/17/16 [Last Taken Unknown] oxyCODONE IR [Oxycodone Ir (*)] 10 mg PO Q4H PRN 05/17/16 [Last Taken 05/17/16 08:26] Pantoprazole Sodium [Protonix 40mg (*)] 40 mg PO DAILY #0 tab 05/27/16 [Last Taken Unknown] Discharge Medications: Refer to the Discharge Home Medication list for PRN reason. - Orders Diet Recommendation: no restrictions on diet Diet Texture: Regular Texture Diet Additional: F/U with Dr. Avendano (ID) June 06 10AM - Follow Up Care Current Providers and Referrals: Javier Fang MD [Medical Doctor] - follow up in 2 weeks (f/u 2-3 weeks from surgery (05/20) with Dr. Fang) Patient,NotPresent [Primary Care Provider] -
--- NOTE | 2016-05-27 16:05 | GDS ---
[f rep st] DISCHARGE SUMMARY DISCHARGE DIAGNOSES: 1. 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 2. Acute gastrointestinal bleed secondary to arteriovenous malformation. 3. Resolved agitation and delirium. 4. Improved acute on chronic kidney disease. 5. Chronic anemia. 6. Hypertension. 7. Chronic pain. 8. Borderline diabetes. CONSULTANTS: 1. Dr. Javier Fang, General Surgery. 2. Dr. Musa, [facility] for Infectious Disease. 3. Dr. Lauren Roque of [facility]. HOSPITAL COURSE: 1. 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 Fang on 05/20/2016, where he had his 2nd toe amputated. Pathology from the amputation annalisai bernice read on day of discharge was not definitive for clear margins. I discussed this finding with Rosalva Cabrera on day of discharge. She was recommending that he be discharged from the hospital off anti biotics with close outpatient monitoring. 2. Acute GI bleed: The patient presented with a hemoglobin of 8.8 that dropped to 5 on 05/22/2016. He was transfused 3 units of packed red blood cells. GI was consulted, where he was found to have an AVM. His H and H were monitored, which slowly drifted down; and on the , he underwent repea t EGD and colonoscopy that showed no bleeding or AVMs. A capsule endoscopy was recommended if he co ntinues to bleed. PHYSICAL EXAM: VITAL SIGNS: On day of discharge, blood pressure 159/87, pulse 65, respiratory rate 16, O2 sat 94% on 2 L, temperature afebrile. GENERAL: No acute distress. HEART: S1, S2. LUNGS: Clear. ABDOMEN: Soft. PROCEDURES: Right 2nd toe proximal phalangeal amputation done by Dr. Fang on 05/20/2016. EGD done 05/22/[address] Roque showing bleeding AVM in the duodenum that was clipped. Repeat EGD with colonoscopy done on 05/26/2016, refer to report. DISCHARGE MEDICATIONS: Please refer to discharge medication reconciliation in [facility]. DISCHARGE INSTRUCTIONS: The patient will be discharged to [facility], where he shoul d follow up with Dr. Fang as directed in 1-2 weeks. He should be in a walking boot when he is out of bed. He should also follow up with Dr. Alexey Musa of Infectious Disease on June 06 at 10 a.m. Greater than 30 minutes were spent on the discharge of this patient. /[id number]/MODL
[2016-05-27 16:40] VITALS: PULSE 78; RESP 18; O2SAT 78
== END 2016-05-27 17:55 | DRG 503 ==
LOC: OBSVTOIN 17:12 → F3E 17:12
PROVIDERS: ADMIT Student in an Organized Health Care Education/Training Program; ATTEND Student in an Organized Health Care Education/Training Program
PROC: 04L Lower Arteries, Occlusion (ICD-10-PCS; 2016-05-18)
PROC: 0Y6R0Z1 Detachment at Right 2nd Toe, High, Open Approach (ICD-10-PCS; principal; 2016-05-20 19:00)
PROC: 02HV33Z Insertion of Infusion Device into Superior Vena Cava, Percutaneous Approach (ICD-10-PCS; 2016-05-21)
PROC: 30233N1 Transfusion of Nonautologous Red Blood Cells into Peripheral Vein, Percutaneous Approach (ICD-10-PCS; 2016-05-22)
PROC: 02HV33Z Insertion of Infusion Device into Superior Vena Cava, Percutaneous Approach (ICD-10-PCS; 2016-05-24)
PROC: 0DB68ZX Excision of Stomach, Via Natural or Artificial Opening Endoscopic, Diagnostic (ICD-10-PCS; 2016-05-26)
PROC: 0DJD8ZZ Inspection of Lower Intestinal Tract, Via Natural or Artificial Opening Endoscopic (ICD-10-PCS; 2016-05-26)
DX: M86.171 Other acute osteomyelitis, right ankle and foot (principal); K31.811 Angiodysplasia of stomach and duodenum with bleeding; N17.9 Acute kidney failure, unspecified; B95.62 Methicillin resistant Staphylococcus aureus infection as the cause of diseases classified elsewhere; L03.031 Cellulitis of right toe; K20.8 Other esophagitis; R73.03 Prediabetes; K57.30 Diverticulosis of large intestine without perforation or abscess without bleeding; K64.9 Unspecified hemorrhoids; K29.50 Unspecified chronic gastritis without bleeding; J44.9 Chronic obstructive pulmonary disease, unspecified; D64.9 Anemia, unspecified; N40.0 Benign prostatic hyperplasia without lower urinary tract symptoms; I12.9 Hypertensive chronic kidney disease with stage 1 through stage 4 chronic kidney disease, or unspecified chronic kidney disease; N18.9 Chronic kidney disease, unspecified; I73.9 Peripheral vascular disease, unspecified; F03.90 Unspecified dementia, unspecified severity, without behavioral disturbance, psychotic disturbance, mood disturbance, and anxiety; Z23 Encounter for immunization; Z89.512 Acquired absence of left leg below knee; Z86.73 Personal history of transient ischemic attack (TIA), and cerebral infarction without residual deficits
CPT/HCPCS: 97162-GP; 97166-GO; 97168-GO; 97530-GO; 97530-GP; 97535-GO; C1751; G0009; J0171; J1335; J2250; J2543; J2704; J3010; J3370; P9016; P9041

== ENCOUNTER → 2016-06-27 | Outpatient (CLI) | payer MEDICAID | LOC: FIMAGING 16:21 | PROVIDERS: ATTEND Physician Assistant | DX: Z47.89 Encounter for other orthopedic aftercare (principal); Z89.429 Acquired absence of other toe(s), unspecified side; E11.9 Type 2 diabetes mellitus without complications; I73.9 Peripheral vascular disease, unspecified; M86.9 Osteomyelitis, unspecified ==

== ENCOUNTER 2016-07-11 12:14 | Emergency (ER) | payer MEDICAID ==
--- NOTE | 2016-07-11 13:02 | EDPHY ---
HPI/HX/ROS/PE/MDM Narrative: CHIEF COMPLAINT: Left sided pain HISTORY OF PRESENT ILLNESS: The patient is a 80-year-old male with history of end stage renal disease, diabetes, and dementia, who presents with left sided pain. The patient was at a followup appointment at the surgery center today complaining of left sided pain, he was transferred here for further evaluation. He states his pain goes from his left knee and radiates up his left testicle and left abdomen and into his back. The patient has experienced this pain in the past, but states it is worse today. He additionally complains of urinary frequency, no hematuria. The patient has diarrhea, but states that has been ongoing for quite sometime, but worse recently. No fever, chills, chest pain, shortness of breath, palpitations, vomiting, headache, lightheadedness. History is otherwise limited due to patient's dementia. REVIEW OF SYSTEMS: Limited due to patients clinical condition. PAST MEDICAL HISTORY: Stroke, Dementia, CKD (creatinine 2.3-2.4), Chronic anemia , COPD, Peripheral vascular disease, BKA on the left, Benign prostate hypertrophy. SOCIAL HISTORY: Resides at [facility]. VITAL SIGNS: Reviewed by me GENERAL: Elderly male, appears in no distress. Able to answer simple questions. Records Technician utilized. HEENT: Atraumatic. Eyes: No icterus, no injection. Mouth: moist mucous membranes. No erythema or lesions. Neck: supple with no adenopathy. LUNGS: Diminished breath sounds bilaterally. CARDIAC: Regular rate and rhythm, no rubs, murmurs or gallops. ABDOMEN: Left testicular tenderness, left lower quadrant tenderness, left mid quadrant tenderness, voluntary guarding. Mild right sided tenderness, no guarding or rebound. BACK: Left CVA tenderness. EXTREMITIES: BKA on left , right lower extremity amputation of second toe with dressing in place, no signs of infection. No edema. NEURO: Alert and oriented to person, grossly nonfocal. SKIN: Warm and dry, no rash. PSYCHIATRIC: Normal mentation, no agitation. Portions of this note were transcribed by a medical staff physician. I personally performed a history, physical exam, medical decision making, and confirmed accuracy of information the transcribed note. ED Course: The patient has dementia. He was transferred here via EMS from the surgery center with complaints of left sided pain. Patient reports worsening left sided pain that starts in his left knee and radiates up through his left testicle, left abdomen, and back. Patient has tenderness to left testicle, left abdomen with voluntary guarding. A cylinder checker was present for the examination. Plan for lab work, chest x-ray, and urinalysis. I reviewed the patient's past medical records. Patient is questionably anticoagulated, it is unclear per records. He was here in May with GI bleed due to AV malformation in duodenum. In Sep 2015, patient was here with left lower quadrant pain found to be secondary to constipation. Patient has history of CKD, last creatinine ranged from 2.3-2.4. Evaluation in the emergency department included the chest xray demonstrating cardiomegaly without failure, laboratory evaluation largely unremarkable. Patient's creatinine today is 1.5. Hemoglobin and hematocrit are 11 and 36. Patient had an abdominal CT with IV contrast obtained with no significant findings. UA shows leukocyte esterase as well as many white blood cells.. Patient was started on Ceftriaxone and will be discharged home with Keflex. Suspect patients complaints related to uti. MDM: Differential diagnosis of the patient's presenting complaint was concerned including not limited to musculoskeletal causes, kidney stone, pyelonephritis, shingles, and intra-abdominal causes such as diverticulitis, constipation, obstruction, tumor mass. - Data Points Imaging: Discussed imaging studies w/ call center specialist Radiologist Laboratory Results: Laboratory Results 07/11/16 13:25 07/11/16 13:25 Medications Given: Discontinued Medications Ceftriaxone Sodium/Dextrose (Rocephin 1 Gm (Premix)) 50 mls @ 100 mls/hr IV EDNOW ONE PRN Reason: Protocol Stop: 07/11/16 16:17 Last Admin: 07/11/16 15:58 Dose: 50 mls Oxycodone HCl (Oxycodone Ir) 5 mg PO EDNOW ONE Stop: 07/11/16 13:08 Last Admin: 07/11/16 13:28 Dose: 5 mg Microbiology Results: MICROBIOLOGY 07/11/16 15:30 Urine,Clean Catch Urine Culture - Preliminary Gram Neg Chung Lactose Acid Regenerator Proteus Species General Time Seen by Provider: 07/11/16 12:52 Initial Vital Signs: Initial Vital Signs Temperature (C) 36.8 C 07/11/16 12:22 Heart Rate 60 07/11/16 12:22 Respiratory Rate 16 07/11/16 12:22 Blood Pressure 166/110 H 07/11/16 12:22 O2 Sat (%) 97 07/11/16 12:22 O2 Delivery Mode Nasal Cannula O2 (L/minute) 2.5 Allergies/Adverse Reactions: No Known Allergies Allergy (Verified 09/03/15 15:25) Home Medications: Medication Instructions Recorded Carvedilol [Coreg (*)] 12.5 mg PO BID@,17 05/17/16 Furosemide [Lasix 40 MG (*)] 60 mg PO DAILY@05/17/16 Lactase [Lactase 3000 Unit (*)] 3,000 unit PO TID@,,05/17/16 Mirtazapine 15 mg PO DAILY@05/17/16 Nystatin Powder [Mycostatin Powder] 1 shannen TOP TID@,,05/17/16 Polyethylene Glycol 3350 [Miralax 17 gm PO DAILY@05/17/16 17 gm (*)] Sodium Cl Nasal Gel [[place] Saline 1 shannen EACHNARE BID 05/17/16 Nasal Gel] Tamsulosin HCl [Flomax 0.4 MG (*)] 0.4 mg PO BID@08,20 05/17/16 morphINE SR [Ms Contin/Oramorph 15 15 mg PO TID@,,05/17/16 mg (*)] oxyCODONE IR [Oxycodone Ir (*)] 5 mg PO Q4H PRN 05/17/16 oxyCODONE IR [Oxycodone Ir (*)] 10 mg PO Q4H PRN 05/17/16 Pantoprazole Sodium [Protonix 40mg 40 mg PO DAILY #0 tab 05/27/16 (*)] Cephalexin [Keflex (RX)] 500 mg PO TID 7 Days 07/11/16 Departure - Departure Disposition: Home, Routine, Self-Care Clinical Impression: Left flank pain Urinary tract infection Qualifiers: Urinary tract infection type: site unspecified Hematuria presence: without hematuria Qualified Code(s): N39.0 - Urinary tract infection, site not specified Condition: Good Instructions: Urinary Tract Infection in Men (ED) Additional Instructions: Take full course of Keflex as directed. Drink plenty of fluids. Followup with your primary care physician as needed. Return to the Emergency Department with new or worsening symptoms. Referrals: Abundio Aguilar MD [Medical Doctor] - As per Instructions Prescriptions: Cephalexin [Keflex (RX)] 500 mg PO TID 7 Days Report Scribed for: Sally Pratt Report Scribed by: Noemi Wilkins Date of Report: 07/11/16 Time of Report: 13:06
[2016-07-11] MEDS ORDERED: oxyCODONE IR 5 MG TAB PO ONE (13:07)
[2016-07-11 13:35] LABS: % IMMATURE GRANULYOCYTES 0.4 % (0.0-1.1); ABSOLUTE IMMATURE GRANULOCYTES 0.03 10^3/uL (0.00-0.10); ADD DIFF? NO; ADD MORPH? NO; ADD SCAN? NO; ATYPICAL LYMPHOCYTE FLAG 20 (0-99); FRAGMENT RBC FLAG 20 (0-99); HEMATOCRIT 35.9 % (40.0-51.0); HEMOGLOBIN 11.2 g/dL (13.7-17.5); LEFT SHIFT FLG 0 (0-99); LIPEMIA HEMOLYSIS FLAG 80 (0-99); MEAN CELL HEMOGLOBIN CONCENTR. 31.2 g/dL (32.4-36.7); MEAN CELL VOLUME 86.5 fL (81.5-99.8); MEAN PLATELET VOLUME 10.6 fL (8.7-11.7); PLATELET CLUMPS FLAG 0 (0-99); PLATELET COUNT 203 10^3/uL (150-400); RED BLOOD CELL COUNT 4.15 10^6/uL (4.40-6.38); RED CELL DISTRIBUTION WIDTH 17.8 % (11.5-15.2)
[2016-07-11 13:50] LABS: ALANINE AMINOTRANSFERASE 28 IU/L (21-72); ALBUMIN 3.8 g/dL (3.5-5.0); ALKALINE PHOSPHATASE 81 IU/L (38-126); ANION GAP 9 mEq/L (8-16); ASPARTATE AMINOTRANSFERASE 19 IU/L (17-59); BILIRUBIN,TOTAL 0.6 mg/dL (0.1-1.4); BILIRUBIN-CONJUGATED 0.4 mg/dL (0.0-0.5); BILIRUBIN-UNCONJUGATED 0.2 mg/dL (0.0-1.1); CALCIUM 9.1 mg/dL (8.5-10.4); CARBON DIOXIDE 28 mEq/l (22-31); CHLORIDE 103 mEq/L (97-110); CREATININE 1.5 mg/dL (0.7-1.3); GLOMERULAR FILTRATION RATE 45; GLUCOSE 97 mg/dL (70-100); POTASSIUM 4.8 mEq/L (3.5-5.2); SODIUM 140 mEq/L (134-144); TOTAL PROTEIN 6.6 g/dL (6.3-8.2)
[2016-07-11 14:01] LABS: TROPONIN I < 0.012 ng/mL (0-0.034)
[2016-07-11 15:40] LABS: COLOR YELLOW; LEUKOCYTE ESTERASE,URINE 3+ (NEGATIVE); NITRITE,URINE NEGATIVE (NEGATIVE)
[2016-07-11 15:45] LABS: WBC,URINE 50-182 /hpf (0-3)
[2016-07-11 17:27] VITALS: RESP 18
[2016-07-11 17:30] VITALS: BP 162/82; PULSE 67; TEMP 98.1; O2SAT 92
== END 2016-07-11 17:30 | disposition home or self-care (01) ==
LOC: EDUNIT#
DX: N39.0 Urinary tract infection, site not specified (principal); B96.29 Other Escherichia coli [E. coli] as the cause of diseases classified elsewhere; B96.4 Proteus (mirabilis) (morganii) as the cause of diseases classified elsewhere; J44.9 Chronic obstructive pulmonary disease, unspecified
CPT/HCPCS: 96365; J0696